=== PATIENT | female | born 1990 | race American Indian/Alaskan Native ===

== ENCOUNTER 2016-08-14 01:46 | Emergency (ER) | payer SELFPAY ==
[2016-08-14 04:47] LABS: Bacteria,Urine 4+ /HPF (Negative); Bilirubin,Urine NEG (Negative); Blood,Urine SM (Negative); Ketones,Urine NEG (Negative); Leukocyte Esterase,Urine SM (Negative); Mucus,Urine 2+ /HPF; Nitrite,Urine NEG (Negative)
--- NOTE | 2016-08-14 06:01 | Emergency Department Report ---
ED Female HPI - General Chief complaint: Back Pain/Injury Stated complaint: BACK PAIN/POSS Time Seen by Provider: 08/14/16 06:00 Source: patient Mode of arrival: Ambulatory Limitations: No Limitations - History of Present Illness Initial comments: 26-year-old -[place] female with no past medical history comes in for complaint of back pain 3 of 4 days. Patient also states to determine if she is . She reports that she is taken 2 tests at home which came back positive. Patient denies any nausea no vomiting no pelvic pain or vaginal discharge no dysuria. She is 2 para 1 she does admit that her urine is dark does not recall if the urine had the smell. - Related Data Previous Rx's Medication Instructions Recorded Last Taken Type Nitrofurantoin [place]/M-Cryst 100 mg PO Q12HR #14 capsule 08/14/16 Unknown Rx [Macrobid CAP] Pnv95/Ferrous Fumarate/FA 1 each PO QDAY #90 tablet 08/14/16 Unknown Rx [ Formula Tablet] Allergies Allergy/AdvReac Type Severity Reaction Status Date / Time No Known Allergies Allergy Verified 03/10/15 22:26 ED Review of Systems ROS: Stated complaint: BACK PAIN/POSS Other details as noted in HPI Constitutional: denies: chills, fever Eyes: denies: eye pain, eye discharge, vision change ENT: denies: ear pain, throat pain Respiratory: denies: cough, shortness of breath, wheezing Cardiovascular: denies: chest pain, palpitations Endocrine: no symptoms reported Gastrointestinal: denies: abdominal pain, nausea, diarrhea Genitourinary: denies: urgency, dysuria, discharge Musculoskeletal: back pain Skin: denies: rash, lesions Neurological: denies: headache, weakness, paresthesias Psychiatric: as per HPI Hematological/Lymphatic: denies: easy bleeding, easy bruising ED Past Medical Hx - Past Medical History Previous Medical History?: No - Surgical History Past Surgical History?: Yes Additional Surgical History: - Social History Smoking Status: Never Smoker Substance Use Type: None - Medications Home Medications: Home Medications Medication Instructions Recorded Confirmed Last Taken Type Nitrofurantoin [place]/M-Cryst 100 mg PO Q12HR #14 capsule 08/14/16 Unknown Rx [Macrobid CAP] Pnv95/Ferrous Fumarate/FA 1 each PO QDAY #90 tablet 08/14/16 Unknown Rx [ Formula Tablet] ED Physical Exam - General Limitations: No Limitations General appearance: alert, in no apparent distress - Head Head exam: Present: atraumatic, normocephalic - Eye Eye exam: Present: normal appearance - ENT ENT exam: Present: mucous membranes moist - GI/Abdominal GI/Abdominal exam: Present: soft, normal bowel sounds. Absent: distended - Back Exam Back exam: Present: tenderness (lower back). Absent: CVA tenderness (R), CVA tenderness (L) - Neurological Exam Neurological exam: Present: alert, oriented X3 - Psychiatric Psychiatric exam: Present: normal affect, normal mood ED Course Vital Signs 08/14/16 08/14/16 08/14/16 02:24 02:32 06:04 Temperature 98.2 F 98.2 F Pulse Rate 81 81 106 H Respiratory 18 18 18 Rate Blood Pressure 125/86 Blood Pressure 125/86 128/82 [Right] O2 Sat by Pulse 100 100 100 Oximetry ED Medical Decision Making - Medical Decision Making Patient has been evaluated by this provider fast track. Review of labs shows the patient is positive for and her urine shows positive WBCs 22. And a trace of blood. Discussed with patient that her results were positive for and that she has a urinary tract infection we would treat patient for UTI and place patient on vitamins. Patient verbalized understanding. Critical care attestation.: If time is entered above; I have spent that time in minutes in the direct care of this critically ill patient, excluding procedure time. ED Disposition Disposition: DISCHARGED TO HOME OR SELFCARE Is pt being admited?: No Does the pt Need Aspirin: No Condition: Stable Instructions: (ED), Urinary Tract Infection in Women (ED) Additional Instructions: Please take antibiotics as prescribed. Also please take vitamins as prescribed follow up with [facility]. Only pain medication needs intake on is Tylenol. Prescriptions: Nitrofurantoin [place]/M-Cryst [Macrobid CAP] 100 mg PO Q12HR #14 capsule Pnv95/Ferrous Fumarate/FA [ Formula Tablet] 1 each PO QDAY #90 tablet Referrals: PRIMARY CARE, [Primary Care Provider] - 3-5 Days [facility] [Provider Group] - 3-5 Days Forms: Work/School Release Form(ED)
[2016-08-14 06:05] VITALS: BP 128/82
== END 2016-08-14 06:15 | disposition home or self-care (01) ==
LOC: ED 01:46
DX: O23.31 Infections of other parts of urinary tract in pregnancy, first trimester (principal); Z3A.01 Less than 8 weeks gestation of pregnancy
CPT/HCPCS: 81001; 81025; 99283

== ENCOUNTER 2016-08-16 21:29 | Emergency (ER) | payer SELFPAY ==
--- NOTE | 2016-08-16 23:47 | Ultrasound Report ---
FINAL REPORT PROCEDURE: US OB TRANSVAGINAL TECHNIQUE: Real-time transvaginal sonography of the uterus, placenta, amniotic fluid, adnexa, and fetus was performed with image documentation. Measurements were obtained to determine age/size. M-mode Doppler was used to document heartbeat. CPT 58684 HISTORY: with pelvic and abdominal pain COMPARISON: There are no older studies to compare FINDINGS: The uterus measures 9.1 X 4.3 x 5.0 Centimeters. There is a small anechoic rounded structure within the endometrium of the uterus. This is nonspecific. It is possible it could be in intrauterine gestational sac although I cannot determine this with certainty. There is no ultrasound evidence of a pole or yolk sac or cardiac activity within this at this time. The uterus appears unremarkable otherwise. Left ovary measures 2.1 x 1.7 x 2.0 centimeters and shows no ultrasound abnormality. The right ovary measures 3.0 x 2.7 x 2.9 centimeters. There is a 2.0 centimeter solid-appearing structure in the right ovary. This could be a cyst with internal debris or hemorrhage. However it is nonspecific and a solid lesion is not excluded. IMPRESSION: 1. At this time there is no ultrasound evidence of a distinct live intrauterine . There is a small round anechoic structure in the endometrium of the uterus which could potentially be a small gestational sac. However it is nonspecific. There is no ultrasound evidence of a pole or yolk sac within this at this time. However it should be noted that it might be too early to definitely detect a viable intrauterine by ultrasound depending on the stage. Therefore short-term follow-up ultrasound exams are recommended to determine if a viable intrauterine develops. If the test remains persistently positive and there is no developing intrauterine on appropriate follow-up then one would also have to consider the possibility of ectopic . 2. There is a 2.0 centimeter solid-appearing lesion in the right ovary. This is nonspecific. It could simply be a cyst with internal debris or hemorrhage. However a small solid lesion in the right ovary is not excluded. 3. The left ovary shows no ultrasound abnormality.
--- NOTE | 2016-08-16 23:51 | Ultrasound Report ---
FINAL REPORT PROCEDURE: US OB \T\lt; = 14 WEEKS FETUS TECHNIQUE: Real-time transabdominal sonography of the uterus, placenta, amniotic fluid, adnexa, and fetus was performed with image documentation. Measurements were obtained to determine age/size. M-mode Doppler was used to document heartbeat. CPT 33830 HISTORY: with pelvic and abdominal pain COMPARISON: No prior studies are available for comparison. FINDINGS: The uterus measures 9.1 X 4.3 x 5.0 centimeters. There is a small anechoic rounded structure within the endometrium of the uterus. This is nonspecific. It is possible it could be in intrauterine gestational sac although I cannot determine this with certainty. There is no ultrasound evidence of a pole or yolk sac or cardiac activity within this at this time. The uterus appears unremarkable otherwise. Left ovary measures 2.1 x 1.7 x 2.0 centimeters and shows no ultrasound abnormality. The right ovary measures 3.0 x 2.7 x 2.9 centimeters. There is a 2.0 centimeter solid-appearing structure in the right ovary. This could be a cyst with internal debris or hemorrhage. However it is nonspecific and a solid lesion is not excluded. IMPRESSION: 1. At this time there is no ultrasound evidence of a distinct live intrauterine . There is a small round anechoic structure in the endometrium of the uterus which could potentially be a small gestational sac. However it is nonspecific. There is no ultrasound evidence of a pole or yolk sac within this at this time. However it should be noted that it might be too early to definitely detect a viable intrauterine by ultrasound depending on the stage. Therefore short-term follow-up ultrasound exams are recommended to determine if a viable intrauterine develops. If the test remains persistently positive and there is no developing intrauterine on appropriate follow-up then one would also have to consider the possibility of ectopic . 2. There is a 2.0 centimeter solid-appearing lesion in the right ovary. This is nonspecific. It could simply be a cyst with internal debris or hemorrhage. However a small solid lesion in the right ovary is not excluded. 3. The left ovary shows no ultrasound abnormality.
[2016-08-17 01:41] VITALS: BP 115/81
== END 2016-08-17 03:17 | disposition left against medical advice (07) ==
LOC: ED 21:29
DX: M54.5 Low back pain (principal); Z53.21 Procedure and treatment not carried out due to patient leaving prior to being seen by health care provider
CPT/HCPCS: 76801; 76817

== ENCOUNTER 2016-08-21 16:19 | Emergency (ER) | payer MEDICAID, OTHER ==
--- NOTE | 2016-08-21 16:57 | Emergency Department Report ---
<OMER VEGA - Last Filed: 08/22/16 13:05> ED Recheck HPI - General Chief Complaint: Recheck/Abnormal Lab/Rx Stated Complaint: RECEIVED CALL TO RETURN TO ER Time Seen by Provider: 08/21/16 16:51 Source: patient Mode of arrival: Ambulatory Limitations: No Limitations - History of Present Illness Initial Comments: 26-year-old -[place] female comes in for reevaluation from visit 2016 where she was diagnosed with and UTI. Patient reports that she has no more back pain and no dysuria she was also told to return for an ultrasound which she did have on the but did not stay for the results in counseling. Patient denies any problems or distress denies any vaginal bleeding denies any vaginal discharge denies any abdominal pain no nausea no vomiting no headache. MD Complaint: abnormal lab, other (abnormal ultrasound from 08/16/2016.) - Related Data Previous Rx's Medication Instructions Recorded Last Taken Type Vit No.130/Iron/FA 1 each PO QDAY #90 tablet 08/21/16 Unknown Rx [ Tablet] Allergies Allergy/AdvReac Type Severity Reaction Status Date / Time No Known Allergies Allergy Verified 08/21/16 16:26 ED Review of Systems ROS: Stated complaint: RECEIVED CALL TO RETURN TO ER Other details as noted in HPI Constitutional: denies: chills, fever Eyes: denies: eye pain, eye discharge, vision change ENT: denies: ear pain, throat pain Respiratory: denies: cough, shortness of breath, wheezing Cardiovascular: denies: chest pain, palpitations Endocrine: no symptoms reported Gastrointestinal: denies: abdominal pain, nausea, diarrhea Genitourinary: denies: urgency, dysuria, discharge Musculoskeletal: denies: back pain, joint swelling, arthralgia Skin: denies: rash, lesions Neurological: denies: headache, weakness, paresthesias Psychiatric: denies: anxiety, depression Hematological/Lymphatic: denies: easy bleeding, easy bruising ED Past Medical Hx - Past Medical History Hx Asthma: Yes - Surgical History Additional Surgical History: - Social History Smoking Status: Never Smoker Substance Use Type: None - Medications Home Medications: Home Medications Medication Instructions Recorded Confirmed Last Taken Type Vit No.130/Iron/FA 1 each PO QDAY #90 tablet 08/21/16 Unknown Rx [ Tablet] ED Physical Exam - General Limitations: No Limitations General appearance: alert, in no apparent distress - Head Head exam: Present: atraumatic, normocephalic - Eye Eye exam: Present: normal appearance - ENT ENT exam: Present: mucous membranes moist - Neck Neck exam: Present: normal inspection - Respiratory Respiratory exam: Present: normal lung sounds bilaterally. Absent: respiratory distress - Cardiovascular Cardiovascular Exam: Present: regular rate, normal rhythm. Absent: systolic murmur, diastolic murmur, rubs, gallop - GI/Abdominal GI/Abdominal exam: Present: soft, normal bowel sounds - Extremities Exam Extremities exam: Present: normal inspection - Back Exam Back exam: Present: normal inspection - Neurological Exam Neurological exam: Present: alert, oriented X3 ED Course Vital Signs 08/21/16 08/21/16 16:22 19:22 Temperature 98.3 F Pulse Rate 86 83 Respiratory 16 18 Rate Blood Pressure 116/71 Blood Pressure 110/69 [Right] O2 Sat by Pulse 100 98 Oximetry ED Recheck MDM - Medical Decision Making Patient is evaluated by this provider in fast track. Patient was a call back from visit 08/14/2016 she did return back on 08/16/2016 but left without being seen. This provider ordered an ultrasound and quantitative hCG. We'll discuss this case with Dr. Ruggiero refer patient to [facility] and be sure that she is on vitamins. Patient verbalized understanding Critical care attestation.: If time is entered above; I have spent that time in minutes in the direct care of this critically ill patient, excluding procedure time. ED Disposition Disposition: DISCHARGED TO HOME OR SELFCARE Is pt being admited?: No Does the pt Need Aspirin: No Condition: Stable Instructions: (ED) Additional Instructions: Please follow-up with your [facility] provider for care. Prescriptions: Vit No.130/Iron/FA [ Tablet] 1 each PO QDAY #90 tablet Referrals: PRIMARY CARE, [Primary Care Provider] - 3-5 Days [facility] [Provider Group] - 3-5 Days Forms: Work/School Release Form(ED) <ALEC RUGGIERO - Last Filed: 08/24/16 15:44> ED Recheck MDM - Medical Decision Making Patient's transvaginal/pelvic ultrasound: Positive IUP with yolk sac measures 6 weeks and 1 day
[2016-08-21 18:30] LABS: Bilirubin,Urine NEG (Negative); Blood,Urine NEG (Negative); Ketones,Urine NEG (Negative); Leukocyte Esterase,Urine SM (Negative); Mucus,Urine 3+ /HPF; Nitrite,Urine NEG (Negative); Protein,Urine <15 mg/dL mg/dL (Negative)
--- NOTE | 2016-08-21 18:31 | Ultrasound Report ---
FINAL REPORT EXAM: US OB TRANSVAGINAL HISTORY: preg TECHNIQUE: Grayscale and color doppler ultrasound imaging of the pelvis was performed transvaginally. PRIORS: None. FINDINGS: Uterus: The uterus is homogeneous in echogenicity without focal mass. The uterus measures 7.8 x 5.2 x 6.7 centimeters. Intrauterine gestational sac and yolk sac were identified. No embryonic pole was seen. Mean sac diameter is 12.7 millimeters corresponding with an estimated gestational age of 6 weeks and 1 day with an CATALINA of 04/15/2017. Ovaries: The right ovary was not seen transvaginally. The left ovary measures 3.7 x 1.7 x 1.9 centimeters. No left ovarian cysts or masses. Free fluid: None. IMPRESSION: Intrauterine gestational sac and yolk sac measuring at 6 weeks and 1 day. Recommend followup pelvic ultrasound to confirm viability of the early .
--- NOTE | 2016-08-21 18:33 | Ultrasound Report ---
FINAL REPORT EXAM: US OB \T\lt; = 14 WEEKS FETUS HISTORY: preg TECHNIQUE: Grayscale and color doppler ultrasound imaging of the pelvis was performed transabdominally. PRIORS: Pelvic ultrasound 08/16/2016. FINDINGS: Uterus: The uterus is homogeneous in echogenicity without focal mass. The uterus measures 7.8 x 5.2 x 6.7 centimeters. Intrauterine gestational sac and yolk sac were seen. No embryonic pole was seen at this time. Mean sac diameter is 12.7 millimeters corresponding with an estimated gestational age of 6 weeks and 1 day with an CATALINA of 04/15/2017. Ovaries: Again seen is heterogeneous, hypoechoic lesion within the right ovary measuring 1.9 x 1.3 x 1.3 centimeters, unchanged. No left ovarian lesions. Normal flow is seen to the right ovary. Color Doppler interrogation of the left ovary was not performed. The right ovary measures 4.2 x 1.9 x 3.8 centimeters. The left ovary measures 3.7 x 1.7 x 1.9 centimeters. Free fluid: None. IMPRESSION: 1. Intrauterine gestational sac and yolk sac measuring at 6 weeks and 1 day gestational age with an CATALINA of 04/15/2017. No embryonic pole identified at this time. Recommend followup pelvic ultrasound to confirm viability of early . 2. Again seen is a heterogeneous right ovarian lesion which may represent a hemorrhagic cyst versus solid neoplasm. Attention on subsequent exams is recommended.
[2016-08-21 19:23] VITALS: BP 110/69
== END 2016-08-21 19:22 | disposition home or self-care (01) ==
LOC: ED 16:19
DX: O23.41 Unspecified infection of urinary tract in pregnancy, first trimester (principal); J45.909 Unspecified asthma, uncomplicated; Z3A.01 Less than 8 weeks gestation of pregnancy
CPT/HCPCS: 36415; 76801; 76817; 81001; 84702

== ENCOUNTER 2016-08-25 23:58 | Emergency (ER) | payer MEDICAID ==
[2016-08-26 00:42] LABS: Basophils % (Auto) 0.2 % (0.0-1.8); Eosinophils % (Auto) 0.9 % (0.0-4.3); Hematocrit 38.5 % (30.3-42.9); Hemoglobin 12.7 gm/dl (10.1-14.3); Mean Corpuscular HGB Conc 33 % (30-34); Mean Corpuscular Hemoglobin 29 pg (28-32); Mean Corpuscular Volume 89 fl (79-97); Platelet Count 317 K/mm3 (140-440); Red Blood Count 4.33 M/mm3 (3.65-5.03); Red Cell Distribution Width 14.2 % (13.2-15.2); White Blood Count 12.1 K/mm3 (4.5-11.0)
[2016-08-26 01:01] LABS: Alanine Aminotransferase 11 units/L (7-56); Albumin 4.3 g/dL (3.9-5); Albumin/Globulin Ratio 1.1 %; Alkaline Phosphatase 47 units/L (35-129); Anion Gap 19 mmol/L; Blood Urea Nitrogen 9 mg/dL (7-17); Calcium 9.1 mg/dL (8.4-10.2); Carbon Dioxide 21 mmol/L (22-30); Chloride 97.7 mmol/L (98-107); Glucose 73 mg/dL (65-100); Lipase 17 units/L (13-60); Potassium 3.7 mmol/L (3.6-5.0); Sodium 134 mmol/L (137-145); Total Protein 8.3 g/dL (6.3-8.2)
[2016-08-26 03:35] LABS: Bacteria,Urine 4+ /HPF (Negative); Bilirubin,Urine NEG (Negative); Blood,Urine MOD (Negative); Ketones,Urine 80 mg/dL (Negative); Leukocyte Esterase,Urine MOD (Negative); Mucus,Urine 3+ /HPF; Nitrite,Urine POS (Negative); Urobilinogen,Urine < 2.0 mg/dL (<2.0)
--- NOTE | 2016-08-26 06:46 | Emergency Department Report ---
HPI - General Chief Complaint: Abdominal Pain Time Seen by Provider: 08/26/16 06:37 - HPI HPI: Room 16 The patient is a 26-year-old female presenting with a chief complaint of abdominal pain. The patient states for the past 3 days she's had intermittent left lower quadrant abdominal pain. The patient states after urinating she notices blood on the tissue after she wipes. Patient denies dysuria or fever. The patient states she has not seen an [facility] for this yet Location: [see above] Duration: [see above] Quality: Pain Severity: Moderate Modifying factors: [see above] Context: The patient is 6 weeks Mode of transportation: [not driving] ED Past Medical Hx - Past Medical History Previous Medical History?: Yes Hx Asthma: Yes - Surgical History Past Surgical History?: Yes Additional Surgical History: - Family History Family history: no significant - Social History Smoking Status: Never Smoker Substance Use Type: None - Medications Home Medications: Home Medications Medication Instructions Recorded Confirmed Last Taken Type Vit No.130/Iron/FA 1 each PO QDAY #90 tablet 08/21/16 08/26/16 Rx [ Tablet] Nitrofurantoin Bradley/M-Cryst 100 mg PO Q12HR #14 capsule 08/26/16 Unknown Rx [Macrobid CAP] ED Review of Systems ROS: Stated complaint: LOWER ABD PAIN/BLOOD IN URINE Other details as noted in HPI Comment: All other systems reviewed and negative Constitutional: denies: chills, fever Eyes: denies: eye pain, eye discharge, vision change ENT: denies: ear pain, throat pain Respiratory: denies: cough, shortness of breath, wheezing Cardiovascular: denies: chest pain, palpitations Endocrine: no symptoms reported Gastrointestinal: abdominal pain Genitourinary: hematuria, abnormal menses. denies: dysuria Musculoskeletal: denies: back pain, joint swelling, arthralgia Skin: denies: rash, lesions Neurological: denies: headache, weakness, paresthesias Psychiatric: denies: anxiety, depression Hematological/Lymphatic: denies: easy bleeding, easy bruising Physical Exam - Physical Exam Vital Signs: Vital Signs 08/26/16 08/26/16 08/26/16 00:14 03:37 03:38 Temperature 98.8 F 98.9 F Pulse Rate 69 62 Respiratory 18 20 20 Rate Blood Pressure 114/77 Blood Pressure 108/65 [Left] O2 Sat by Pulse 100 100 100 Oximetry Physical Exam: GENERAL: The patient is well-developed well-nourished female lying on stretcher not appearing to be in acute distress. [] HEENT: Normocephalic. Atraumatic. Extraocular motions are intact. Patient has moist mucous membranes. NECK: Supple. Trachea midline CHEST/LUNGS: Clear to auscultation. There is no respiratory distress noted. HEART/CARDIOVASCULAR: Regular. There is no tachycardia. There is no gallop rub or murmur. ABDOMEN: Abdomen is soft, nontender. Patient has normal bowel sounds. There is no abdominal distention. SKIN: There is no rash. There is no edema. There is no diaphoresis. NEURO: The patient is awake, alert, and oriented. The patient is cooperative. The patient has normal speech MUSCULOSKELETAL: There is no evidence of acute injury. ED Course Vital Signs 08/26/16 08/26/16 08/26/16 00:14 03:37 03:38 Temperature 98.8 F 98.9 F Pulse Rate 69 62 Respiratory 18 20 20 Rate Blood Pressure 114/77 Blood Pressure 108/65 [Left] O2 Sat by Pulse 100 100 100 Oximetry ED Medical Decision Making - Lab Data Result diagrams: 08/26/16 00:25 08/26/16 00:25 Laboratory Tests 08/26/16 08/26/16 08/26/16 00:25 00:25 00:25 WBC 12.1 H RBC 4.33 Hgb 12.7 Hct 38.5 MCV 89 MCH 29 MCHC 33 RDW 14.2 Plt Count 317 Lymph % (Auto) 17.0 Bradley % (Auto) 5.6 Eos % (Auto) 0.9 Baso % (Auto) 0.2 Lymph # 2.1 Bradley # 0.7 Eos # 0.1 Baso # 0.0 Seg Neutrophils % 76.3 H Seg Neutrophils # 9.3 H Sodium 134 L Potassium 3.7 Chloride 97.7 L Carbon Dioxide 21 L Anion Gap 19 BUN 9 Creatinine 0.5 L Estimated GFR > 60 BUN/Creatinine Ratio 18.00 Glucose 73 Calcium 9.1 Total Bilirubin 0.50 AST 16 ALT 11 Alkaline Phosphatase 47 Total Protein 8.3 H Albumin 4.3 Albumin/Globulin Ratio 1.1 Lipase 17 HCG, Qual Positive HCG, Quant Urine Color Urine Turbidity Urine pH Ur Specific [place] Urine Protein Urine Glucose (UA) Urine Ketones Urine Blood Urine Nitrite Urine Bilirubin Urine Urobilinogen Ur Leukocyte Esterase Urine WBC (Auto) Urine RBC (Auto) U Epithel Cells (Auto) Urine Bacteria (Auto) Urine Mucus 08/26/16 08/26/16 00:25 02:46 WBC RBC Hgb Hct MCV MCH MCHC RDW Plt Count Lymph % (Auto) Bradley % (Auto) Eos % (Auto) Baso % (Auto) Lymph # Bradley # Eos # Baso # Seg Neutrophils % Seg Neutrophils # Sodium Potassium Chloride Carbon Dioxide Anion Gap BUN Creatinine Estimated GFR BUN/Creatinine Ratio Glucose Calcium Total Bilirubin AST ALT Alkaline Phosphatase Total Protein Albumin Albumin/Globulin Ratio Lipase HCG, Qual HCG, Quant 90122 H Urine Color Yellow Urine Turbidity Clear Urine pH 6.0 Ur Specific [place] 1.027 Urine Protein 30 mg/dl Urine Glucose (UA) Neg Urine Ketones 80 Urine Blood Mod Urine Nitrite Pos Urine Bilirubin Neg Urine Urobilinogen < 2.0 Ur Leukocyte Esterase Mod Urine WBC (Auto) 13.0 H Urine RBC (Auto) 7.0 U Epithel Cells (Auto) 8.0 Urine Bacteria (Auto) 4+ Urine Mucus 3+ - Radiology Data Radiology results: report reviewed (pelvic ultrasound), image reviewed (pelvic ultrasound) Pelvic ultrasound (read by radiologist)-single living gestation at approximate 6 weeks. EDC by ultrasound 04/18/2017. Heart rate is slow at 91 bpm. 10 x 8 mm subchorionic hematoma. - Differential Diagnosis UTI, threatened Critical care attestation.: If time is entered above; I have spent that time in minutes in the direct care of this critically ill patient, excluding procedure time. ED Disposition Clinical Impression: UTI (urinary tract infection), Threatened , Subchorionic hemorrhage Disposition: DISCHARGED TO HOME OR SELFCARE Is pt being admited?: No Does the pt Need Aspirin: No Condition: Stable Instructions: Abdominal Pain (ED) Additional Instructions: Return to the emergency department immediately should you develop worsening symptoms, fever, inability to tolerate food or liquid or any other concerns. Prescriptions: Nitrofurantoin [place]/M-Cryst [Macrobid CAP] 100 mg PO Q12HR #14 capsule Referrals: PRIMARY CARE, [Primary Care Provider] - 3-5 Days [facility]Provider [facility]] - [place] Time of Disposition: 08:20
[2016-08-26 07:38] VITALS: BP 100/60
--- NOTE | 2016-08-26 08:01 | Ultrasound Report ---
FINAL REPORT PROCEDURE: US OB TRANSVAGINAL TECHNIQUE: Real-time transvaginal sonography of the uterus, placenta, amniotic fluid, adnexa, and fetus was performed with image documentation. Measurements were obtained to determine age/size. M-mode Doppler was used to document heartbeat. CPT 29464 HISTORY: lower abdominal pain, vaginal bleeding COMPARISON: August 21, 2016 FINDINGS: CRL: 3.9mm, which corresponds to a gestational age of: 6weeks, 0 days. Yolk Sac: Normal. Embryonic Cardiac Activity: 91 beats per minute Gestational Sac: Normal. There is a small subchorionic hematoma. This measures 10 x 8 millimeters. Right Ovary: There is a 2.8 centimeter complex cyst. Left Ovary: Normal. Estimated delivery date: 04/18/2017 Comment: Complete anatomic survey at 18-20 weeks suggested. IMPRESSION: 1. Single living intrauterine gestation at approximately 6 weeks 2. EDC by US 04/18/2017. 3. Heart rate is slow at 91 beats per minute.. 4. 10 x 8 millimeter subchorionic hematoma.
--- NOTE | 2016-08-26 08:02 | Ultrasound Report ---
FINAL REPORT PROCEDURE: US OB TRANSABDOMINAL TECHNIQUE: Real-time TRANSABDOMINAL sonography of the uterus, placenta, amniotic fluid, adnexa, and fetus was performed with image documentation. Measurements were obtained to determine age/size. M-mode Doppler was used to document heartbeat. HISTORY: lower abdominal pain, vaginal bleeding COMPARISON: August 21, 2016 FINDINGS: CRL: 3.9mm, which corresponds to a gestational age of: 6weeks, 0 days. Yolk Sac: Normal. Embryonic Cardiac Activity: 91 beats per minute Gestational Sac: Normal. There is a small subchorionic hematoma. This measures 10 x 8 millimeters. Right Ovary: There is a 2.8 centimeter complex cyst. Left Ovary: Normal. Estimated delivery date: 04/18/2017 Comment: Complete anatomic survey at 18-20 weeks suggested. IMPRESSION: 1. Single living intrauterine gestation at approximately 6 weeks 2. EDC by US 04/18/2017. 3. Heart rate is slow at 91 beats per minute.. 4. 10 x 8 millimeter subchorionic hematoma.
== END 2016-08-26 08:28 | disposition home or self-care (01) ==
LOC: ED 23:58
DX: O20.0 Threatened abortion (principal); O23.41 Unspecified infection of urinary tract in pregnancy, first trimester; O99.511 Diseases of the respiratory system complicating pregnancy, first trimester; Z3A.01 Less than 8 weeks gestation of pregnancy
CPT/HCPCS: 36415; 76801; 76817; 80053; 81001; 83690; 84702; 84703; 85025

== ENCOUNTER 2016-10-31 23:13 | Emergency (ER) | payer MEDICAID ==
[2016-10-31 23:34] VITALS: BP 110/74
[2016-11-01 00:13] LABS: Basophils % (Auto) 0.3 % (0.0-1.8); Eosinophils % (Auto) 1.3 % (0.0-4.3); Hematocrit 33.1 % (30.3-42.9); Hemoglobin 10.9 gm/dl (10.1-14.3); Mean Corpuscular HGB Conc 33 % (30-34); Mean Corpuscular Hemoglobin 30 pg (28-32); Mean Corpuscular Volume 89 fl (79-97); Platelet Count 272 K/mm3 (140-440); Red Blood Count 3.71 M/mm3 (3.65-5.03); Red Cell Distribution Width 14.1 % (13.2-15.2); White Blood Count 9.8 K/mm3 (4.5-11.0)
[2016-11-01 00:36] LABS: Alanine Aminotransferase 19 units/L (7-56); Albumin 3.7 g/dL (3.9-5); Albumin/Globulin Ratio 0.9 %; Alkaline Phosphatase 45 units/L (35-129); Anion Gap 18 mmol/L; Blood Urea Nitrogen 8 mg/dL (7-17); Calcium 9.3 mg/dL (8.4-10.2); Carbon Dioxide 22 mmol/L (22-30); Chloride 99.7 mmol/L (98-107); Glucose 80 mg/dL (65-100); Lipase 26 units/L (13-60); Potassium 3.4 mmol/L (3.6-5.0); Sodium 136 mmol/L (137-145); Total Protein 7.9 g/dL (6.3-8.2)
--- NOTE | 2016-11-01 02:34 | Ultrasound Report ---
FINAL REPORT EXAM: US OB \T\gt; = 14 WEEKS FETUS HISTORY: Abd pain COMPARISON: August 26, 2016. TECHNIQUE: Several real-time grayscale and color Doppler images were obtained. Transabdominal and transvaginal exam. FINDINGS: Single live IUP. Estimated gestational age 16 weeks 2 days. Estimated delivery date April 16, 2017. heart rate 153 beats per minute. Estimated weight 162 grams. On prior exam, estimated delivery date April 18, 2017. BPD 13.1 centimeters 15 weeks 5 days. Head circumference 12.0 centimeter 16 weeks 0 days. Abdominal circumference 10.9 centimeter 16 weeks 5 days. Femoral length 2.2 centimeter 16 weeks 5 days. position breech. Placenta location anterior. No placenta previa. CHRIS within normal limits. Cervix is closed and measures 2.2 centimeters in length. Visualized heart, stomach, urinary bladder, cerebral ventricles are within normal limits. Three-vessel umbilical cord with abdominal insertion. 4 chambers of the heart and spine are not well visualized. Technologist notes mild dilatation of the renal pelves measuring 3 millimeters in diameter. Possible echogenic focus within the heart. IMPRESSION: Single live IUP. Estimated gestational age 16 weeks 2 days. Estimated delivery date April 16, 2017. Borderline dilatation of the renal pelves. Possible echogenic focus within the heart. Followup exam with perinatologist may be of benefit for further evaluation. No other or placental abnormality demonstrated.
--- NOTE | 2016-11-01 18:16 | ED Elopement Review ---
ED Pt Elopement review - Results review Lab results: Laboratory Tests 10/31/16 10/31/16 10/31/16 23:41 23:41 23:41 WBC 9.8 RBC 3.71 Hgb 10.9 Hct 33.1 MCV 89 MCH 30 MCHC 33 RDW 14.1 Plt Count 272 Lymph % (Auto) 17.6 Pope % (Auto) 8.4 H Eos % (Auto) 1.3 Baso % (Auto) 0.3 Lymph # 1.7 Pope # 0.8 Eos # 0.1 Baso # 0.0 Seg Neutrophils % 72.4 H Seg Neutrophils # 7.1 Sodium 136 L Potassium 3.4 L Chloride 99.7 Carbon Dioxide 22 Anion Gap 18 BUN 8 Creatinine 0.4 L Estimated GFR > 60 BUN/Creatinine Ratio 20.00 Glucose 80 Calcium 9.3 Total Bilirubin 0.30 AST 24 ALT 19 Alkaline Phosphatase 45 Total Protein 7.9 Albumin 3.7 L Albumin/Globulin Ratio 0.9 Lipase 26 HCG, Qual Positive HCG, Quant 10/31/16 23:41 WBC RBC Hgb Hct MCV MCH MCHC RDW Plt Count Lymph % (Auto) Pope % (Auto) Eos % (Auto) Baso % (Auto) Lymph # Pope # Eos # Baso # Seg Neutrophils % Seg Neutrophils # Sodium Potassium Chloride Carbon Dioxide Anion Gap BUN Creatinine Estimated GFR BUN/Creatinine Ratio Glucose Calcium Total Bilirubin AST ALT Alkaline Phosphatase Total Protein Albumin Albumin/Globulin Ratio Lipase HCG, Qual HCG, Quant 48664 H - Call Back decision Pt Call Back Decision: Pt to F/U with PMD (patient needs to follow-up with OB/ HEAVY MEDIA OPERATOR as OB ultrasound shows possible abnormalities of echogenic focus in the heart and dilation of renal pelvis)
== END 2016-11-01 01:55 | disposition left against medical advice (07) ==
LOC: ED 23:13
DX: O26.892 Other specified pregnancy related conditions, second trimester (principal); R10.9 Unspecified abdominal pain; Z3A.16 16 weeks gestation of pregnancy; Z53.21 Procedure and treatment not carried out due to patient leaving prior to being seen by health care provider
CPT/HCPCS: 36415; 76805; 76817; 80053; 83690; 84702; 84703; 85025

== ENCOUNTER 2017-03-07 19:23 | Outpatient (CLI) | payer MEDICAID ==
[2017-03-07 19:55] VITALS: BP 117/72
[2017-03-07] MEDS ORDERED: LACTATED RINGERS 500 ML IV ONE (22:11)
== END 2017-03-07 22:20 | disposition home or self-care (01) ==
LOC: TRG 19:23 → LD 19:32 → TRG 22:20
PROVIDERS: ATTEND Obstetrics & Gynecology
DX: O47.03 False labor before 37 completed weeks of gestation, third trimester (principal); Z3A.34 34 weeks gestation of pregnancy
CPT/HCPCS: 59025; J7120

== ENCOUNTER 2017-04-10 08:57 | Inpatient (IN) | payer MEDICAID ==
[2017-04-10] MEDS ORDERED: REGLAN IV SCH (09:40)
[2017-04-10] MEDS ORDERED: PEPCID IV SCH (09:40)
[2017-04-10] MEDS ORDERED: BICITRA PO SCH (09:40)
--- NOTE | 2017-04-10 09:47 | History and Physical Report ---
History of Present Illness Date of examination: 04/10/17 (pt presents in early labor will move forward with repeat c/s today) History of present illness: EDC Confirmation: 04/16/2017 Gestational Age: 8 weeks Past History : 2 Term Births: 1 Living Children: 1 Para: 1 Prev : 1 # 1 Delivery date: 2013 Weeks Gestation: term Delivery type: Anesthesia type: epidural Delivery location: [place] Infant Sex: Male weight: 7 Comments: failure to dilate Risk Factors: Smoked Tobacco Use: Never smoker Smokeless Tobacco Use: Never Passive smoke exposure: no Drug use: no HIV high-risk behavior: low risk Caffeine use: 1 drinks per day Alcohol use: no Seatbelt use: 100 % Dietary Counseling: pn yes Past Medical History: Reviewed history and no changes required: Negative Past Medical History Past Surgical History: Past Medical History Surgery (Non-equine vet): Abnormal PAP: negative EZE Exposure: negative Infertility: negative Uterine Anomaly: negative Uterine Surgery (not C/S): negative Other Gynecologic Problems: negative Social Hx: Patient is single Smoking History: Patient has never smoked. Infection History Hx of STD: chlamydia HIV Risk Eval: low risk Hepatitis B Risk Eval: low risk Personal hx. of genital herpes: no Partner hx. of genital herpes: no Rash, Viral, or Febrile illness since last LMP? no Varicella/Chicken Pox Status: Previous Disease TB Risk: no Genetic History Congenital Heart Defect: Mom: no Dad: no Smooth Disease: Mom: no Dad: no Thalassemia Mom: no Dad: no Neural Tube Defect Mom: no Dad: no Down's Syndrome Mom: no Dad: no Ghassan-Sachs Mom: no Dad: no Sickle Cell Disease/Trait Mom: no Dad: no Hemophilia Mom: no Dad: no Muscular Dystrophy Mom: no Dad: no Cystic Fibrosis Mom: no Dad: no [place] Chorea Mom: no Dad: no Mental Retardation Mom: no Dad: no Fragile X Mom: no Dad: no Other Genetic/Chromosomal Disorder Mom: no Dad: no Child w/other defect Mom: no Dad: no Enviromental Exposures Xray Exposure: no Medication, drug, or alcohol use since LMP: no Chemical/Other Exposure: no Exposure to Cat Liter: no Hx of Parvovirus (Fifth Disease): no Occupational Exposure to Children: none Active Medications: ZOFRAN ODT 8 MG TBDP (ONDANSETRON) 1 po q12hrs prn Current Allergies: No known allergies Laboratory Results Date/Time Collected: 09/04/2016 Routine Urinalysis Leukocytes: 2+ Nitrite: negative Urobilinogen: negative Protein: Trace Blood: 1+ Ketone: negative Bilirubin: negative Glucose: Negative Urine HCG: positive Review of Systems General Denies fever, chills, sweats, anorexia, fatigue, weakness, malaise, weight loss and sleep disorder. Denies nausea, vomiting, headache, swelling of legs, abdominal pain, vaginal discharge, vaginal bleeding and contractions. Denies vaginal discharge, incontinence, dysuria, hematuria, urinary frequency, amenorrhea, menorrhagia, abnormal vaginal bleeding, pelvic pain, genital sores, decreased libido, painful periods, painful sex, urinary urgency, hot flashes, vaginal dryness, vaginal itching and vaginal odor. CV Denies chest pains, palpitations, syncope, dyspnea on exertion, orthopnea, PND and peripheral edema. Resp Denies cough, dyspnea at rest, excessive sputum, hemoptysis, wheezing and pleurisy. GI Denies nausea, vomiting, diarrhea, constipation, change in bowel habits, abdominal pain, melena, hematochezia, jaundice, gas/bloating, indigestion/ heartburn, dysphagia and odynophagia. Endo Denies cold intolerance, heat intolerance, polydipsia, polyphagia, polyuria and unusual weight change. Breast Denies left breast lump, right breast lump, nipple discharge, bloody discharge from nipple, breast pain, abnormal mammogram and breast enlargement. MS Denies back pain, joint pain, joint swelling, muscle cramps, muscle weakness, stiffness, arthritis, sciatica, restless legs, leg pain at night and leg pain with exertion. Derm Denies rash, itching, dryness and suspicious lesions. Neuro Denies paralysis, paresthesias, headache, seizures, tremors, vertigo, transient blindness, frequent falls, frequent headaches and difficulty walking. Psych Denies depression, anxiety, irritability and mood swings. Eyes Denies blurring, diplopia, irritation, discharge, vision loss, eye pain and photophobia. ENT Denies earache, ear discharge, tinnitus, decreased hearing, nasal congestion, nosebleeds, sore throat and hoarseness. Allergy Denies urticaria, allergic rash, hay fever and recurrent infections. Heme Denies abnormal bruising, bleeding and enlarged lymph nodes. Family History Summary: No Known Family History - Entered On: 09/04/2016 Social History: Patient is single Smoking History: Patient has never smoked. PHYSICAL EXAM HEENT: PERRLA, normal conjunctiva, external nose and nasal mucosa normal, oropharynx clear Neck/Thyroid: supple, thyroid normal Skin no significant abnormal lesions or rashes Chest: respiratory effort normal, clear to auscultation Breasts: normal without skin changes or masses CV: regular, normal S1-S2, no murmur, no rub, no gallop Abdomen: normal bowel sounds, soft, nontender, no HSM Musculoskeletal: grossly normal ROM in joints, no joint tenderness or muscle weakness Neuro: grossly normal DTRs, sensation, strength, cranial nerves Extremities: no clubbing, cyanosis, or edema Past History - Obstetrical History Expected Date of Delivery: 04/16/17 Actual Gestation: 39 Week(s) 1 Day(s) : 2 Para: 1 (c/s due to failure to dilate) Hx # Term Pregnancies: 1 Number of Living Children: 1 Medications and Allergies Allergies Allergy/AdvReac Type Severity Reaction Status Date / Time No Known Allergies Allergy Verified 08/21/16 16:26 Home Medications Medication Instructions Recorded Confirmed Last Taken Type Vit No.130/Iron/Folic 1 each PO QDAY #90 tablet 08/21/16 08/26/1608/26 Rx [ Tablet] Nitrofurantoin [place]/M-Cryst 100 mg PO Q12HR #14 capsule 08/26/16 Unknown Rx [Macrobid CAP] Active Meds: Active Medications Lactated Ringer's (Lactated Ringers) 1,000 mls @ 125 mls/hr IV DIRECT CRISSY - Vital Signs Vital signs: Vital Signs Temp Pulse Resp BP 98.5 F 65 18 114/74 04/10/17 08:59 04/10/17 08:59 04/10/17 08:59 04/10/17 08:59 Temp Pulse Resp BP Pulse Ox 98.5 F 65 18 114/74 04/10/17 08:59 04/10/17 08:59 04/10/17 08:59 04/10/17 08:59 - Physical Exam Breasts: Positive: deferred Cardiovascular: Regular rate, Normal S1, Normal S2 Lungs: Positive: Normal air movement Abdomen: Positive: normal appearance, soft, normal bowel sounds. Negative: distention, tenderness Genitourinary (Female): Positive: normal external genitalia Vulva: both: normal Vagina: Positive: normal moisture. Negative: discharge Cervix: Negative: lesion, discharge Uterus: Positive: normal size, normal contour Adnexa: both: normal Anus/Rectum: Positive: normal perianal skin, heme negative. Negative: rectal mass, hemorrhoids Extremities: Positive: normal Deep Tendon Reflex Grade: Normal +2 - Obstetrical FHR: category 1 Uterine Contraction Monitor Mode: External Cervical Dilatation: 0 Cervical Effacement Percentage: 50 station: -1 Uterine Contraction Frequency (min): q4 Uterine Contraction Pattern: Regular Uterine Tone Measurement Phase: Resting Uterine Contraction Intensity: Mild Results Result Diagrams: 04/10/17 09:55 All other labs normal. Strep Gp B PENNY [A] Positive HBsAg Screen Negative Negative *1 Rubella Antibodies, IgG 7.53 index Immune >0.99 *2 Non-immune <0.90 Equivocal 0.90 - 0.99 Immune >0.99 ABO Grouping A *3 Rh Factor Positive *4 Please note: Prior records for this patient's ABO / Rh type are not available for additional verification. Antibody Screen Negative Negative *5 RPR Non Reactive Non Reactive *6 WBC 9.6 x10E3/uL 3.4-10.8 *7 RBC 3.92 x10E6/uL 3.77-5.28 *8 Hemoglobin 11.3 g/dL 11.1-15.9 *9 Hematocrit 34.6 % 34.0-46.6 *10 MCV 88 fL 79-97 *11 MCH 28.8 pg 26.6-33.0 *12 MCHC 32.7 g/dL 31.5-35.7 *13 RDW 14.3 % 12.3-15.4 *14 Platelets 256 x10E3/uL 150-379 *15 Neutrophils 77 % *16 Lymphs 13 % *17 Monocytes 8 % *18 Eos 2 % *19 Basos 0 % *20 ! Immature Cells <No Reported Value> *21 Neutrophils (Absolute) [H] 7.4 x10E3/uL 1.4-7.0 *22 Lymphs (Absolute) 1.3 x10E3/uL 0.7-3.1 *23 Monocytes(Absolute) 0.7 x10E3/uL 0.1-0.9 *24 Eos (Absolute) 0.2 x10E3/uL 0.0-0.4 *25 Baso (Absolute) 0.0 x10E3/uL 0.0-0.2 *26 ! Immature Granulocytes 0 % *27 ! Immature Grans (Abs) 0.0 x10E3/uL 0.0-0.1 *28 ! NRBC <No Reported Value> *29 Hematology Comments: <No Reported Value> *30 Tests: (2) Cystic Fibrosis Profile (089089) ! CF, Screen Comment: *31 RESULTS: Negative for 32 mutations analyzed Tests: (3) HB Solu + Rflx Fra (081100) Hemoglobin (Hgb) Solubility Negative Negative *33 Tests: (4) Panel 011225 ([id number]) HIV Screen 4th Generation wRfx Non Reactive Non Reactive *34 Tests: (5) HCV Ab w/Rflx to Verification (198014) ! HCV Ab <0.1 s/co ratio 0.0-0.9 *35 Tests: (6) Comment: (199068) ! Comment: SPRCS *36 Non reactive HCV antibody screen is consistent with no HCV infection, unless recent infection is suspected or other evidence exists to indicate HCV infection. Assessment and Plan 26yo @ 39 weeks in early active labor Consulted with Will move forward with pt's repeat c/s today. GBS+ Orders in EMR - Patient Problems (1) Group B Streptococcus carrier state affecting Onset Date: ~04/10/17 Current Visit: Yes Status: Acute (2) Previous section Onset Date: ~04/10/17 Current Visit: Yes Status: Acute
[2017-04-10] MEDS ORDERED: PITOCin/NS 20 UNIT/1000ML DRIP 20 UNITS/1,000 ML BAG IV SCH ×2 (10:00→22:09)
[2017-04-10] MEDS ORDERED: LACTATED RINGERS 1,000 ML IV SCH ×2 (10:00)
[2017-04-10] MEDS ORDERED: ANCEF/STERILE WATER 2 GM/20 ML 2 GM/20 ML SYRINGE IV NR (10:00)
[2017-04-10 10:20] LABS: Bacteria,Urine 4+ /HPF (Negative); Mucus,Urine 1+ /HPF
[2017-04-10 10:22] LABS: Basophils % (Auto) 0.3 % (0.0-1.8); Eosinophils % (Auto) 0.5 % (0.0-4.3); Hematocrit 27.3 % (30.3-42.9); Hemoglobin 8.5 gm/dl (10.1-14.3); Mean Corpuscular HGB Conc 31 % (30-34); Mean Corpuscular Volume 72 fl (79-97); Platelet Count 357 K/mm3 (140-440); Red Cell Distribution Width 17.3 % (13.2-15.2); White Blood Count 10.2 K/mm3 (4.5-11.0)
[2017-04-10 10:23] LABS: Mean Corpuscular Hemoglobin 23 pg (28-32); WBC,Urine > 182.0 /HPF (0.0-6.0)
[2017-04-10 10:26] LABS: Bilirubin,Urine NEG (Negative); Blood,Urine NEG (Negative); Ketones,Urine NEG (Negative); Leukocyte Esterase,Urine LG (Negative); Nitrite,Urine NEG (Negative); Protein,Urine <15 mg/dL mg/dL (Negative)
--- NOTE | 2017-04-10 17:07 | Anesthesia Day of Surgery ---
Anesthesia Day of Surgery - Day of Surgery Patient Examined: Yes Patient H&P Reviewed: Yes Patient is NPO: Yes
[2017-04-10] MEDS ORDERED: ZOFRAN IV PRN (17:08)
[2017-04-10] MEDS ORDERED: PHENERGAN PO PRN (17:08)
[2017-04-10] MEDS ORDERED: BENADRYL IV PRN (17:08)
[2017-04-10] MEDS ORDERED: NARCAN 0.4 MG/1 ML IV PRN ×2 (17:08→22:09)
[2017-04-10] MEDS ORDERED: PHENERGAN PR PRN (17:08)
--- NOTE | 2017-04-10 17:08 | Anesthesia Consultation ---
Anesthesia Consult and Med Hx Date of service: 04/10/17 - Airway Anesthetic Teeth Evaluation: Good ROM Head & Neck: Adequate Mental/Hyoid Distance: Adequate Mallampati Class: Class II Intubation Access Assessment: Probably Good - Pre-Operative Health Status ASA Pre-Surgery Classification: ASA2 Proposed Anesthetic Plan: Epidural, Spinal - Pulmonary Hx Asthma: Yes COPD: No Hx Pneumonia: No - Cardiovascular System Hx Hypertension: No - Central Nervous System Hx Seizures: No Hx Psychiatric Problems: No - Endocrine Hx Renal Disease: No Hx End Stage Renal Disease: No Hx Hypothyroidism: No Hx Hyperthyroidism: No - Hematic Hx Anemia: No Hx Sickle Cell Disease: No - Other Systems Hx Alcohol Use: No
[2017-04-10] MEDS ORDERED: TORADOL IV PRN (17:09)
[2017-04-10] MEDS ORDERED: MORPHINE ONE (17:28)
[2017-04-10] MEDS ORDERED: NEO SYNEPHRINE/NS Syringe(OR USE) IV ONE ×2 (17:48→18:21)
[2017-04-10] MEDS ORDERED: SODIUM CHLORIDE FLUSH SYRINGE 10 ML IV NR ×2 (18:00→22:09)
[2017-04-10] MEDS ORDERED: ANCEF ONE (18:00)
[2017-04-10] MEDS ORDERED: TORADOL ONE (18:03)
[2017-04-10] MEDS ORDERED: ZOFRAN ONE (18:32)
--- NOTE | 2017-04-10 18:41 | Operative Report ---
Operative Report Operative Report: Date of procedure: 04/10/2017 Pre-operative diagnosis: Uterine at 39 weeks with previous section in labor Post-operative diagnosis: Same Procedure name(s): Repeat low transverse section Surgeon: Kike Mead MD Predatory Animal Exterminator: LENNIE Anesthesia: Spinal EBL: 500 mL Complications: None Findings: Normal uterus tubes and ovaries bilaterally male weight 7 lbs. 7 oz. Apgars 8 at 1 minute and 9 at 5 minutes Specimen(s): None Procedure: The patient was brought to the operating room. A spinal was placed without any complications. She was then placed in left lateral tilt. Prepped and draped in the usual sterile manner. After testing for adequate anesthesia level, a Pfannenstiel incision was made through her previous scar. This incision was taken down to the fascia. The fascia was then nicked in the midline. This incision was extended out laterally with Seals scissors. The fascia was then sharply and bluntly from the underlying rectus muscles. The rectus muscles were bluntly and sharply . The peritoneum was then entered with the hardening machine operator's fingers. This incision was spread vertically with care not to damage the bladder below. The bladder flap was then formed sharply and bluntly with Metzenbaum scissors. The David self- retaining tractor was then placed without any difficulty. A transverse incision was made in lower uterine segment. This incision was extended laterally with the operators fingers. The amniotic sac was then entered bluntly with the hardening machine operator's fingers. The infant was delivered from the vertex position with assistance of a vacuum. Bulb suction on the mother's abdomen. Cord was double clamped and cut. The was then passed to the nursery personnel who were in attendance. The above scores were given by the nursery personnel. The placenta was then bluntly removed. The uterus was then externalized and wiped clean the remaining products. The uterine incision was closed in layers. The first incision was closed in a locking manner using 0 Vicryl. This was followed by imbricating stitch also with 0 Vicryl. This closure was hemostatic. The bladder flap was copiously irrigated and found to be hemostatic. The pelvis was copiously irrigated and found to be hemostatic. The uterus was then placed back to the patient's abdomen. The retractors were removed. The rectus muscles were inspected and found to be hemostatic. The fascia was then closed in a running manner using 0 Vicryl. This incision was hemostatic irrigation Bovie. The skin was reapproximated with 4-0 Vicryl subcuticularly. The patient tolerated procedure well. Her urine was clear. The was admitted to the well baby nursery. The patient was accompanied to recovery room in good condition. Instrument count correct 3
[2017-04-10] MEDS ORDERED: ANCEF/NS 1 GM/50 ML 1 GM/50 ML BAG IV SCH (22:09)
[2017-04-10] MEDS ORDERED: TUCKS PAD TP PRN (22:09)
[2017-04-10] MEDS ORDERED: LANSINOH TP PRN (22:09)
[2017-04-10] MEDS ORDERED: D5LR 1,000 ML IV SCH (22:09)
[2017-04-11] MEDS: ceFAZolin 1 GM in NACL 0.9% 20 ML IV SCH ×2 (02:30→13:10)
[2017-04-11] MEDS: TORADOL IV SCH ×4 (05:03→20:38)
[2017-04-11 05:49] LABS: Hematocrit 18.1 % (30.3-42.9); Hemoglobin 5.6 gm/dl (10.1-14.3)
[2017-04-11] MEDS ORDERED: NACL 0.9% 500 ML 500 ML IV ONE (06:25)
[2017-04-11] MEDS ORDERED: BENADRYL PO ONE (06:30)
[2017-04-11] MEDS ORDERED: TYLENOL PO ONE (06:30)
--- NOTE | 2017-04-11 06:30 | Event Note ---
Date: 04/11/17 (post-op H&H 09/06) Spoke with Will order transfusion of 3 units PRBC. Pt consented
--- NOTE | 2017-04-11 07:27 | Progress Note ---
Assessment and Plan - Patient Problems (1) delivery delivered Onset Date: ~04/10/17 Current Visit: Yes Status: Acute Plan to address problem: Pt A&O X 3 No c/o voiced VSS FF below umb Lochia scant H&H 08/27 Pt has not been OOB but does not c/o any s/sx of anemia Transfusion ordered. Pt stable s/p repeat c/s with exception anemia P: continue pathway Transfuse 3 units. consulted also (2) Anemia Onset Date: ~04/11/17 Current Visit: Yes Status: Acute Qualifiers: Anemia type: iron deficiency Iron deficiency anemia type: other iron deficiency Qualified Code(s): D50.8 - Other iron deficiency anemias Plan to address problem: Post-op H&H 09/06 Abdomen is soft; pain/tenderness only @ incision site. Transfuse 3 units PRBC Consulted with . Pt aware and agrees to transfusion. Subjective - Subjective Date of service: 04/11/17 (pt w/o complaint; denies any s/sx of anemia) Principal diagnosis: Day # 1 s/p section Interval history: EDC Confirmation: 04/16/2017 Gestational Age: 8 weeks Past History : 2 Term Births: 1 Living Children: 1 Para: 1 Prev : 1 # 1 Delivery date: 2012 Weeks Gestation: term Delivery type: Anesthesia type: epidural Delivery location: [place] Sex: Male weight: 7 Comments: failure to dilate Risk Factors: Smoked Tobacco Use: Never smoker Smokeless Tobacco Use: Never Passive smoke exposure: no Drug use: no HIV high-risk behavior: low risk Caffeine use: 1 drinks per day Alcohol use: no Seatbelt use: 100 % Dietary Counseling: pn yes Past Medical History: Reviewed history and no changes required: Negative Past Medical History Past Surgical History: Past Medical History Surgery (Non-senior data modeler): Abnormal PAP: negative EZE Exposure: negative Infertility: negative Uterine Anomaly: negative Uterine Surgery (not C/S): negative Other Gynecologic Problems: negative Social Hx: Patient is single Smoking History: Patient has never smoked. Infection History Hx of STD: chlamydia HIV Risk Eval: low risk Hepatitis B Risk Eval: low risk Personal hx. of genital herpes: no Partner hx. of genital herpes: no Rash, Viral, or Febrile illness since last LMP? no Varicella/Chicken Pox Status: Previous Disease TB Risk: no Genetic History Congenital Heart Defect: Mom: no Dad: no Smooth Disease: Mom: no Dad: no Thalassemia Mom: no Dad: no Neural Tube Defect Mom: no Dad: no Down's Syndrome Mom: no Dad: no Ghassan-Sachs Mom: no Dad: no Sickle Cell Disease/Trait Mom: no Dad: no Hemophilia Mom: no Dad: no Muscular Dystrophy Mom: no Dad: no Cystic Fibrosis Mom: no Dad: no Alex Chorea Mom: no Dad: no Mental Retardation Mom: no Dad: no Fragile X Mom: no Dad: no Other Genetic/Chromosomal Disorder Mom: no Dad: no Child w/other defect Mom: no Dad: no Enviromental Exposures Xray Exposure: no Medication, drug, or alcohol use since LMP: no Chemical/Other Exposure: no Exposure to Cat Liter: no Hx of Parvovirus (Fifth Disease): no Occupational Exposure to Children: none Active Medications: ZOFRAN ODT 8 MG TBDP (ONDANSETRON) 1 po q12hrs prn Current Allergies: No known allergies Laboratory Results Date/Time Collected: 09/04/2016 Routine Urinalysis Leukocytes: 2+ Nitrite: negative Urobilinogen: negative Protein: Trace Blood: 1+ Ketone: negative Bilirubin: negative Glucose: Negative Urine HCG: positive Review of Systems General Denies fever, chills, sweats, anorexia, fatigue, weakness, malaise, weight loss and sleep disorder. Denies nausea, vomiting, headache, swelling of legs, abdominal pain, vaginal discharge, vaginal bleeding and contractions. Denies vaginal discharge, incontinence, dysuria, hematuria, urinary frequency, amenorrhea, menorrhagia, abnormal vaginal bleeding, pelvic pain, genital sores, decreased libido, painful periods, painful sex, urinary urgency, hot flashes, vaginal dryness, vaginal itching and vaginal odor. CV Denies chest pains, palpitations, syncope, dyspnea on exertion, orthopnea, PND and peripheral edema. Resp Denies cough, dyspnea at rest, excessive sputum, hemoptysis, wheezing and pleurisy. GI Denies nausea, vomiting, diarrhea, constipation, change in bowel habits, abdominal pain, melena, hematochezia, jaundice, gas/bloating, indigestion/ heartburn, dysphagia and odynophagia. Endo Denies cold intolerance, heat intolerance, polydipsia, polyphagia, polyuria and unusual weight change. Breast Denies left breast lump, right breast lump, nipple discharge, bloody discharge from nipple, breast pain, abnormal mammogram and breast enlargement. MS Denies back pain, joint pain, joint swelling, muscle cramps, muscle weakness, stiffness, arthritis, sciatica, restless legs, leg pain at night and leg pain with exertion. Derm Denies rash, itching, dryness and suspicious lesions. Neuro Denies paralysis, paresthesias, headache, seizures, tremors, vertigo, transient blindness, frequent falls, frequent headaches and difficulty walking. Psych Denies depression, anxiety, irritability and mood swings. Eyes Denies blurring, diplopia, irritation, discharge, vision loss, eye pain and photophobia. ENT Denies earache, ear discharge, tinnitus, decreased hearing, nasal congestion, nosebleeds, sore throat and hoarseness. Allergy Denies urticaria, allergic rash, hay fever and recurrent infections. Heme Denies abnormal bruising, bleeding and enlarged lymph nodes. Family History Summary: No Known Family History - Entered On: 09/04/2016 Social History: Patient is single Smoking History: Patient has never smoked. PHYSICAL EXAM HEENT: PERRLA, normal conjunctiva, external nose and nasal mucosa normal, oropharynx clear Neck/Thyroid: supple, thyroid normal Skin no significant abnormal lesions or rashes Chest: respiratory effort normal, clear to auscultation Breasts: normal without skin changes or masses CV: regular, normal S1-S2, no murmur, no rub, no gallop Abdomen: normal bowel sounds, soft, nontender, no HSM Musculoskeletal: grossly normal ROM in joints, no joint tenderness or muscle weakness Neuro: grossly normal DTRs, sensation, strength, cranial nerves Extremities: no clubbing, cyanosis, or edema Patient reports: voiding normally (camargo draining clear yellow urine) [place]ml[place]: doing well Objective - Vital Signs Latest vital signs: Vital Signs Temp Pulse Resp BP BP Pulse Ox 04/11/17 06:00 98.6 F 78 18 110/68 04/11/17 00:00 98.5 F 82 20 120/72 04/10/17 20:01 84 16 109/62 99 04/10/17 19:50 109/62 99 04/10/17 19:45 98.0 F 12/20/17 19:40 77 13 105/73 97 04/10/17 19:30 75 11 L 109/76 100 04/10/17 19:20 68 33 H 93/46 100 04/10/17 19:10 78 13 100 04/10/17 19:00 77 18 100 04/10/17 18:59 83 18 106/72 100 04/10/17 18:51 79 16 101/79 100 04/10/17 18:50 98.8 F 94 H 15 100 04/10/17 18:46 77 10 L 100 04/10/17 08:59 98.5 F 65 18 114/74 Intake and Output 04/10/17 04/11/17 04/11/17 22:59 06:59 14:59 Intake Total 100 Output Total 500 450 Balance -400 -450 Intake: IV 100 Output: Urine 500 450 Uretheral ([place]) 250 450 - Exam Breasts: Present: normal Cardiovascular: Present: Regular rate Lungs: Present: Normal air movement Abdomen: Present: normal appearance, soft, normal bowel sounds Uterus: Present: normal, fundal height below umbilicus Extremities: Present: normal, edema Deep Tendon Reflex Grade: Normal +2 Incision: Present: normal, dry, intact (lynne in place; no redness/swelling) - Labs Labs: Abnormal lab results 04/10/17 04/10/17 04/10/17 Range/Units 09:55 09:55 09:55 Hgb 8.5 L (10.1-14.3) gm/dl Hct 27.3 L (30.3-42.9) % MCV 72 L (79-97) fl MCH 23 L (28-32) pg RDW 17.3 H (13.2-15.2) % Seg Neutrophils % 77.2 H (40.0-70.0) % Seg Neutrophils # 7.9 H (1.8-7.7) K/mm3 Urine WBC (Auto) > 182.0 H (0.0-6.0) /HPF Crossmatch See Detail 04/11/17 Range/Units 05:10 Hgb 5.6 L* (10.1-14.3) gm/dl Hct 18.1 L* D (30.3-42.9) % MCV (79-97) fl MCH (28-32) pg RDW (13.2-15.2) % Seg Neutrophils % (40.0-70.0) % Seg Neutrophils # (1.8-7.7) K/mm3 Urine WBC (Auto) (0.0-6.0) /HPF Crossmatch
[2017-04-11] MEDS ORDERED: NACL 0.9% 500 ML 1,000 ML ONE (08:47)
[2017-04-11] MEDS ORDERED: BENADRYL PO NR (09:00)
[2017-04-11] MEDS ORDERED: TYLENOL PO NR (09:00)
[2017-04-11 23:34] LABS: Hematocrit 26.8 % (30.3-42.9)
[2017-04-12] MEDS: NORCO 5/325 PO PRN ×2 (05:34→16:38)
[2017-04-12] MEDS: MOTRIN PO PRN ×3 (05:36→23:09)
[2017-04-12] MEDS ORDERED: BOOSTRIX IM ONE (06:00)
--- NOTE | 2017-04-12 08:12 | Progress Note ---
Assessment and Plan patient doing well, no complaints. VSSAF, repeat H&H after transfusion 01/15. dressing removed, incision dry and intact. Continue postop care and anticipate d /c home tomorrow. - Patient Problems (1) Anemia Onset Date: ~04/11/17 Current Visit: Yes Status: Acute Qualifiers: Anemia type: iron deficiency Iron deficiency anemia type: other iron deficiency Qualified Code(s): D50.8 - Other iron deficiency anemias (2) delivery delivered Onset Date: ~04/10/17 Current Visit: Yes Status: Acute Subjective - Subjective Date of service: 04/12/17 Principal diagnosis: Day # 2 s/p section Patient reports: appetite normal, voiding normally, pain well controlled, flatus , ambulating normally, no dizzy ambulation, no nauseated : doing well, bottle feeding Objective - Vital Signs Latest vital signs: Vital Signs Temp Pulse Resp BP BP Pulse Ox 04/11/17 23:45 98.5 F 70 18 105/72 100 04/11/17 18:15 98.5 F 84 16 115/76 04/11/17 18:14 98.7 F 82 20 109/65 04/11/17 17:30 98.3 F 82 16 111/77 04/11/17 17:29 98.8 F 88 16 109/64 04/11/17 15:38 98.3 F 77 16 113/77 04/11/17 15:10 97.9 F 74 20 104/65 04/11/17 14:40 98.7 F 76 16 116/69 04/11/17 14:11 98.7 F 78 16 109/69 04/11/17 13:40 98.7 F 73 16 103/73 04/11/17 12:30 98.2 F 71 16 103/66 04/11/17 10:30 97.7 F 81 16 107/63 04/11/17 10:02 98.3 F 69 16 101/66 04/11/17 10:01 98.7 F 78 16 104/66 04/11/17 09:45 98.5 F 76 18 104/54 04/11/17 09:07 98.5 F 76 18 104/54 Intake and Output 04/11/17 04/12/17 04/12/17 23:59 07:59 15:59 Intake Total 860 Output Total 200 200 Balance 660 -200 Intake: Oral 360 Blood Product 500 Leukoreduced Red Blood 250 Cells Unit [id number] Leukoreduced Red Blood 250 Cells Unit [id number] Output: Urine 200 200 Indwelling Catheter 200 200 Other: Total, Intake Amount 240 Total, Output Amount 200 200 - Exam Breasts: Present: normal Cardiovascular: Present: Regular rate Lungs: Present: Clear to auscultation, Normal air movement Abdomen: Present: normal appearance, soft, normal bowel sounds Vulva: both: normal Uterus: Present: normal, firm, fundal height at umbilicus Extremities: Present: normal Deep Tendon Reflex Grade: Normal +2 Incision: Present: normal, dry, intact - Labs Labs: Abnormal lab results 04/10/17 04/11/17 Range/Units 09:55 23:06 Hgb 9.0 L D (10.1-14.3) gm/dl Hct 26.8 L D (30.3-42.9) % Crossmatch See Detail
--- NOTE | 2017-04-12 09:45 | Query-Anemia ---
Deaagustin Dc Date:__04/12/17 Corking Machine Operator/CDS:___Iwona Phone#:__[phone] Exercise your independent professional judgment when responding to this query. Questions asked do not imply a particular answer is desired or expected. We greatly appreciate your clarification on this issue. Clinical Documentation States: 26yo @ 39 weeks was admitted on 04/10/17. Operative Report(Dr. COBB 0n 04/10/17) states"Pre-operative diagnosis: Uterine at 39 weeks with previous section in labor Post-operative diagnosis: Same Procedure name(s): Repeat low transverse section EBL: 500 mL " /MEDICAL CSR Progress Note( ) states" Anemia Plan to address problem: Post-op H&H 09/06 Transfuse 3 units PRBC" Clinical Findings Show 04/10/17 04/11/17 Hgb 8.5 5.6 Hct 27.3 18.1 Treatment: Transfusion(s)__3 Units Etiology: [x ] Anemia due to acute blood loss [ ] Anemia due to chronic blood loss [ ] Anemia secondary to ESRD [ ] Anemia secondary to neoplastic disease [ ] Iron deficiency anemia due to malabsorption [ ] GI Bleed from: [ ] Anemia of chronic disease ,Other: [ ] Precipitous Drop in Hemoglobin [ ] Precipitous Drop in Hematocrit [ ] Other: [ ] Unable to determine [ ] Comment/Explanation: Present on Admission: [ ] Yes (Y) [ ] Clinically undeterminable (W) [x ] No (N) Please also document response in your Progress Notes and/or Discharge Summary and indicate if the condition was present on admission. MTDD
[2017-04-12] MEDS ORDERED: Fluarix Quad 2017-2018(36 MOS+ IM ONE (12:00)
[2017-04-12] MEDS: PRENATAL VITAMIN PO SCH (16:38)
[2017-04-12] MEDS: FEOSOL PO SCH (16:39)
[2017-04-13] MEDS: NORCO 5/325 PO PRN ×2 (07:44→13:05)
--- NOTE | 2017-04-13 11:22 | Discharge Summary ---
Providers - Providers Date of Admission: 04/10/17 11:05 Date of discharge: 04/13/17 Attending physician: SHEILA COBB 04/10/17 22:09 Consult to Gis Software Developer [CONS] Routine Reason For Exam: Primary care physician: SHEILA COBB Hospitalization Reason for admission: active labor Delivery: Procedure: section Procedure details: See operative note Incision: normal, dry, intact Other procedures: none complications: none Discharge diagnosis: IUP at term delivered baby: male Hospital course: Patient was admitted and underwent above procedure without complications. Her post operative course was benign she was afebrile throughout. Patient postoperative day 1 hematocrit was in an acceptable range. Patient had no orthostatic symptoms. Patient was tolerating regular diet and voiding without difficulty at time of discharge. Patient incision was healing well without evidence of infection. 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 (4) Previous section Status: Chronic Plan - Discharge Medications Prescriptions: Ferrous Sulfate [Feosol 325 MG tab] 325 mg PO BID #60 tablet Ibuprofen [Motrin 800 MG tab] 800 mg PO Q6H PRN #30 tablet PRN Reason: Pain oxyCODONE /ACETAMINOPHEN [Percocet 5/325 mg] 1 - 2 tab PO Q4H PRN #30 tablet PRN Reason: Pain, Moderate - Provider Discharge Summary Activity: routine, no sex for 6 weeks, no heavy lifting 4 weeks, no strenuous exercise Diet: routine Instructions: routine Additional instructions: [] Smoking cessation referral if applicable(refer to patient education folder for contact #) [] Refer to [facility] Booklet Call your doctor immediately for: * Fever > 100.5 * Heavy vaginal bleeding ( >1 pad per hour) * Severe persistent headache * Shortness of breath * Reddened, hot, painful area to leg or breast * Drainage or odor from incision. * Keep incision clean and dry at all times and follow doctor's instructions regarding bathing/showering Patient office for fever chills nausea vomiting or pain uncontrolled by pain relief. Patient instructed no heavy lifting 6 weeks. No sex for 6 weeks. Patient to keep scheduled appointment. Patient to schedule circumcision for her son - Follow up plan Follow up: SHEILA COBB MD [Primary Care Provider] - 7 Days
[2017-04-13] MEDS: PRENATAL VITAMIN PO SCH (13:04)
[2017-04-13] MEDS: FEOSOL PO SCH (13:04)
[2017-04-13] MEDS: MOTRIN PO PRN (13:05)
[2017-04-13 18:45] VITALS: BP 106/67
== END 2017-04-13 16:43 | disposition home or self-care (01) | DRG 765 ==
LOC: TRG 08:57 → LD 08:58 → TRG 11:03 → LD 11:05 → OB 21:10
PROVIDERS: ADMIT Obstetrics & Gynecology; ATTEND Obstetrics & Gynecology
PROC: 10D00Z1 Extraction of Products of Conception, Low, Open Approach (ICD-10-PCS; principal; 2017-04-10)
PROC: 30233N1 Transfusion of Nonautologous Red Blood Cells into Peripheral Vein, Percutaneous Approach (ICD-10-PCS; 2017-04-11)
PROC: 3E0234Z Introduction of Serum, Toxoid and Vaccine into Muscle, Percutaneous Approach (ICD-10-PCS; 2017-04-12)
DX: O34.211 Maternal care for low transverse scar from previous cesarean delivery (principal); D62 Acute posthemorrhagic anemia; O99.03 Anemia complicating the puerperium; O99.824 Streptococcus B carrier state complicating childbirth; Z3A.39 39 weeks gestation of pregnancy; Z37.0 Single live birth; Z23 Encounter for immunization
CPT/HCPCS: 36415; 81001; 85014; 85018; 85025; 86850; 86900; 86901; 86920; 90471; 90686; 90715; C1765; G0008; J0690; J1885; J2270; J2370; J2405; J2590; J2765; J7040; J7120; P9016

== ENCOUNTER 2017-04-12 11:30 | Inpatient (IN) | payer MEDICAID ==
[2017-04-20] MEDS ORDERED: BENADRYL PO PRN (11:44)
[2017-04-20] MEDS ORDERED: MILK OF MAGNESIA PO PRN (11:44)
[2017-04-20] MEDS ORDERED: PHENERGAN PO PRN (11:44)
[2017-04-20] MEDS ORDERED: ZOFRAN IV PRN (11:44)
[2017-04-20] MEDS ORDERED: DULCOLAX PR PRN (11:44)
[2017-04-20] MEDS ORDERED: TUCKS PAD TP PRN (11:44)
[2017-04-20] MEDS ORDERED: LANSINOH TP PRN (11:44)
[2017-04-20] MEDS ORDERED: SODIUM CHLORIDE FLUSH SYRINGE 10 ML IV SCH (12:00)
[2017-04-20] MEDS ORDERED: MAGNESIUM SULFATE 40GM/1000ML 40 GM/1,000 ML BAG IV ONE (12:45)
[2017-04-20] MEDS ORDERED: APRESOLINE IV PRN (12:46)
[2017-04-20] MEDS ORDERED: LACTATED RINGERS 1,000 ML IV SCH (13:00)
[2017-04-20] MEDS ORDERED: MAGNESIUM SULFATE 40GM/1000ML 40 GM/1,000 ML BAG IV SCH (14:00)
[2017-04-20 14:05] LABS: Hematocrit 33.5 % (30.3-42.9); Hemoglobin 10.7 gm/dl (10.1-14.3); Mean Corpuscular HGB Conc 32 % (30-34); Mean Corpuscular Volume 80 fl (79-97); Platelet Count 444 K/mm3 (140-440); Red Blood Count 4.21 M/mm3 (3.65-5.03)
[2017-04-20 14:06] LABS: Mean Corpuscular Hemoglobin 26 pg (28-32); Red Cell Distribution Width 20.6 % (13.2-15.2)
[2017-04-20 14:46] LABS: Alanine Aminotransferase 21 units/L (7-56); Uric Acid 4.2 mg/dL (3.5-7.6)
--- NOTE | 2017-04-20 16:50 | History and Physical Report ---
History of Present Illness Date of examination: 04/20/17 (received call from [facility] ED Pt there with LOPEZ and elevated BP) Date of admission: 04/20/17 12:52 Chief complaint: sudden onset LOPEZ 10 days PP History of present illness: Pt went to [facility] this AM with sudden onset LOPEZ. Her eval there PP PreE. Received call to transport to [facility]. Accepted per . Pt admitted to M/B unit. Admission BP 148/107. MGSO4 loading dose had been given Operative Report Operative Report: Date of procedure: 04/10/2017 Pre-operative diagnosis: Uterine at 39 weeks with previous section in labor Post-operative diagnosis: Same Procedure name(s): Repeat low transverse section Surgeon: Kike Mead MD Peanut Vendor: LENNIE Anesthesia: Spinal EBL: 500 mL Complications: None Findings: Normal uterus tubes and ovaries bilaterally male weight 7 lbs. 7 oz. Apgars 8 at 1 minute and 9 at 5 minutes Specimen(s): None Procedure: The patient was brought to the operating room. A spinal was placed without any complications. She was then placed in left lateral tilt. Prepped and draped in the usual sterile manner. After testing for adequate anesthesia level, a Pfannenstiel incision was made through her previous scar. This incision was taken down to the fascia. The fascia was then nicked in the midline. This incision was extended out laterally with Seals scissors. The fascia was then sharply and bluntly from the underlying rectus muscles. The rectus muscles were bluntly and sharply . The peritoneum was then entered with the unit reactor operator's fingers. This incision was spread vertically with care not to damage the bladder below. The bladder flap was then formed sharply and bluntly with Metzenbaum scissors. The David self- retaining tractor was then placed without any difficulty. A transverse incision was made in lower uterine segment. This incision was extended laterally with the operators fingers. The amniotic sac was then entered bluntly with the unit reactor operator's fingers. The infant was delivered from the vertex position with assistance of a vacuum. Bulb suction on the mother's abdomen. Cord was double clamped and cut. The was then passed to the nursery personnel who were in attendance. The above scores were given by the nursery personnel. The placenta was then bluntly removed. The uterus was then externalized and wiped clean the remaining products. The uterine incision was closed in layers. The first incision was closed in a locking manner using 0 Vicryl. This was followed by imbricating stitch also with 0 Vicryl. This closure was hemostatic. The bladder flap was copiously irrigated and found to be hemostatic. The pelvis was copiously irrigated and found to be hemostatic. The uterus was then placed back to the patient's abdomen. The retractors were removed. The rectus muscles were inspected and found to be hemostatic. The fascia was then closed in a running manner using 0 Vicryl. This incision was hemostatic irrigation Bovie. The skin was reapproximated with 4-0 Vicryl subcuticularly. The patient tolerated procedure well. Her urine was clear. The was admitted to the well baby nursery. The patient was accompanied to recovery room in good condition. Instrument count correct 3 Past History - Obstetrical History : 2 Para: 2 Number of Living Children: 2 Medications and Allergies Allergies Allergy/AdvReac Type Severity Reaction Status Date / Time No Known Allergies Allergy Verified 08/21/16 16:26 Home Medications Medication Instructions Recorded Confirmed Last Taken Type Vit No.130/Iron/Folic 1 each PO QDAY #90 tablet 08/21/16 04/20/1704/10 09:00 Rx [ Tablet] Nitrofurantoin [place]/M-Cryst 100 mg PO Q12HR #14 capsule 08/26/16 04/20/17 Unknown Rx [Macrobid CAP] Ferrous Sulfate [Feosol 325 MG tab] 325 mg PO BID #60 tablet 04/10/17 04/20/17 Unknown Rx Ibuprofen [Motrin 800 MG tab] 800 mg PO Q6H PRN #30 tablet 04/10/17 04/20/17 Unknown Rx oxyCODONE /ACETAMINOPHEN [Percocet 1 - 2 tab PO Q4H PRN #30 tablet 04/10/17 Unknown Rx 5/325 mg] Lidocain2.5%/Prilocai2.5% [Emla] 5 gm TP ONCE #1 tube 04/13/17 04/20/17 Unknown Rx Active Meds: Active Medications Acetaminophen (Tylenol) 650 mg PO Q4H PRN PRN Reason: Pain MILD(1-3)/Fever >100.5/LOPEZ Bisacodyl (Dulcolax) 10 mg HI BID PRN PRN Reason: Constipation Diphenhydramine HCl (Benadryl) 25 mg PO Q6H PRN PRN Reason: Itching Hydralazine HCl (Apresoline) 5 mg IV Q30MIN PRN PRN Reason: Hypertension Magnesium Sulfate (Magnesium Sulfate 40gm/1000ml) 40 gm in 1,000 mls @ 50 mls/ hr IV DIRECT CRISSY PRN Reason: 2 GM/HR Lactated Ringer's (Lactated Ringers) 1,000 mls @ 100 mls/hr IV DIRECT CRISSY Magnesium Hydroxide (Milk Of Magnesia) 30 ml PO HS PRN PRN Reason: Constipation Multi-Ingredient Ointment (Lansinoh) 1 applic TP PRN PRN PRN Reason: Sore Nipples Ondansetron HCl (Zofran) 4 mg IV Q8H PRN PRN Reason: Nausea And Vomiting Promethazine HCl (Phenergan) 25 mg PO Q6H PRN PRN Reason: Nausea And Vomiting Sodium Chloride (Sodium Chloride Flush Syringe 10 Ml) 10 ml IV PRN CRISSY Witch Estefani/Glycerin (Tucks Pad) 1 each TP PRN PRN PRN Reason: Hemorrhoid/cleansing/soothing - Vital Signs Vital signs: Vital Signs Temp Pulse Resp BP 98.6 F 84 20 148/107 04/20/17 12:15 04/20/17 12:15 04/20/17 12:15 04/20/17 12:15 Temp Pulse Resp BP Pulse Ox 98.6 F 84 20 131/99 04/20/17 12:15 04/20/17 12:15 04/20/17 12:15 04/20/17 13:00 - Physical Exam Breasts: Positive: normal Cardiovascular: Regular rate, Normal S1, Normal S2 Lungs: Positive: Clear to auscultation, Normal air movement Abdomen: Positive: normal appearance, soft, normal bowel sounds. Negative: distention, tenderness Genitourinary (Female): Positive: normal external genitalia Vulva: both: normal Vagina: Positive: normal moisture. Negative: discharge Cervix: Negative: lesion, discharge Uterus: Positive: normal size, normal contour Adnexa: both: normal Anus/Rectum: Positive: normal perianal skin, heme negative. Negative: rectal mass, hemorrhoids Extremities: Positive: edema Deep Tendon Reflex Grade: Normal but brisk +3 Results Result Diagrams: 04/20/17 13:48 04/20/17 13:48 Abnormal lab results 04/20/17 04/20/17 Range/Units 13:48 13:48 WBC 11.3 H (4.5-11.0) K/mm3 MCH 26 L (28-32) pg RDW 20.6 H (13.2-15.2) % Plt Count 444 H (140-440) K/mm3 Creatinine 0.4 L (0.7-1.2) mg/dL Lactate Dehydrogenase 449 H (91-180) units/L All other labs normal. Assessment and Plan - Patient Problems (1) Pre-eclampsia, Onset Date: ~04/20/17 Current Visit: No Status: Acute Plan to address problem: Pt admitted to M/B All orders in EMR. aware of admission. Had a lengthy discussion with pt @ PreE and that LOPEZ comes with elevated BP. Praised her that she went to [facility] for evaluation. All questions were addressed. Pt encouraged to have RN call me with any concerns.
[2017-04-20 19:15] LABS: Bilirubin,Urine NEG (Negative); Blood,Urine LG (Negative); Color,Urine Straw (Yellow); Mucus,Urine FEW /HPF; Nitrite,Urine NEG (Negative); Protein,Urine <15 mg/dL mg/dL (Negative); Urobilinogen,Urine < 2.0 mg/dL (<2.0)
[2017-04-20 23:04] LABS: Hematocrit 35.3 % (30.3-42.9); Hemoglobin 11.5 gm/dl (10.1-14.3)
[2017-04-21] MEDS: TYLENOL PO PRN (00:13)
[2017-04-21] MEDS: LACTATED RINGERS 1,000 ML IV SCH (00:15)
--- NOTE | 2017-04-21 10:25 | Progress Note ---
Assessment and Plan - Patient Problems (1) Pre-eclampsia, Onset Date: ~04/20/17 Current Visit: No Status: Acute Plan to address problem: Pt lying in bed in dark room when I made rounds. BP 120/80 Mag level 6.8 MGSO4 turned off. DTRs wnl Negative edema. Pt denies LOPEZ, blurred vision, chest pain. Improving status PP PreE P: Discussed with pt my concerns @ PP blues and depression. Encouraged to be OOB, shower, and try to eat. Suggested she have family bring in some of her favorite foods - NO SALT. Also encouraged to ambulate in hallway. Continue to closely monitor BP and for any s/sx of PreE. Will monitor for s/sx of depression. (2) Blues Onset Date: ~04/21/17 Current Visit: Yes Status: Acute Plan to address problem: Pt has been hospitalized since yesterday. There has not been family with her during my visits. Her demeanor is quiet, she states she has no appetite. Will off MH eval and will monitor for worsening s/sx. Pt agrees to consult. Subjective - Subjective Date of service: 04/21/17 (pt feeling blue; "I have no appetite.") Principal diagnosis: PreE; S/P section 11 days ago Interval history: Pt went to [facility] this AM with sudden onset LOPEZ. Her eval there PP PreE. Received call to transport to [facility]. Accepted per . Pt admitted to M/B unit. Admission BP 148/107. MGSO4 loading dose had been given Operative Report Operative Report: Date of procedure: 04/10/2017 Pre-operative diagnosis: Uterine at 39 weeks with previous section in labor Post-operative diagnosis: Same Procedure name(s): Repeat low transverse section Surgeon: Kike Mead MD Organic Chemistry Professor: LENNIE Anesthesia: Spinal EBL: 500 mL Complications: None Findings: Normal uterus tubes and ovaries bilaterally male weight 7 lbs. 7 oz. Apgars 8 at 1 minute and 9 at 5 minutes Specimen(s): None Procedure: The patient was brought to the operating room. A spinal was placed without any complications. She was then placed in left lateral tilt. Prepped and draped in the usual sterile manner. After testing for adequate anesthesia level, a Pfannenstiel incision was made through her previous scar. This incision was taken down to the fascia. The fascia was then nicked in the midline. This incision was extended out laterally with Seals scissors. The fascia was then sharply and bluntly from the underlying rectus muscles. The rectus muscles were bluntly and sharply . The peritoneum was then entered with the oxygraph operator's fingers. This incision was spread vertically with care not to damage the bladder below. The bladder flap was then formed sharply and bluntly with Metzenbaum scissors. The David self- retaining tractor was then placed without any difficulty. A transverse incision was made in lower uterine segment. This incision was extended laterally with the operators fingers. The amniotic sac was then entered bluntly with the oxygraph operator's fingers. The was delivered from the vertex position with assistance of a vacuum. Bulb suction on the mother's abdomen. Cord was double clamped and cut. The was then passed to the nursery personnel who were in attendance. The above scores were given by the nursery personnel. The placenta was then bluntly removed. The uterus was then externalized and wiped clean the remaining products. The uterine incision was closed in layers. The first incision was closed in a locking manner using 0 Vicryl. This was followed by imbricating stitch also with 0 Vicryl. This closure was hemostatic. The bladder flap was copiously irrigated and found to be hemostatic. The pelvis was copiously irrigated and found to be hemostatic. The uterus was then placed back to the patient's abdomen. The retractors were removed. The rectus muscles were inspected and found to be hemostatic. The fascia was then closed in a running manner using 0 Vicryl. This incision was hemostatic irrigation Bovie. The skin was reapproximated with 4-0 Vicryl subcuticularly. The patient tolerated procedure well. Her urine was clear. The infant was admitted to the well baby nursery. The patient was accompanied to recovery room in good condition. Instrument count correct 3 Patient reports: voiding normally, pain well controlled, appetite poor, ambulating normally Objective - Vital Signs Latest vital signs: Vital Signs Temp Pulse Resp BP BP Pulse Ox 04/21/17 03:20 99.2 F 87 14 118/86 97 04/21/17 02:10 99.2 F 90 12 130/84 100 04/21/17 00:13 18 04/21/17 00:07 20 130/91 04/21/17 00:00 99 F 88 16 130/91 04/20/17 23:12 95 H 99 04/20/17 23:07 128/91 04/20/17 23:06 128/91 04/20/17 22:48 126/87 04/20/17 22:46 125/92 04/20/17 22:00 98.9 F 99 H 14 126/87 04/20/17 20:10 121/83 04/20/17 19:48 99.4 F 126 H 16 118/61 04/20/17 18:42 115/80 04/20/17 18:00 115/80 04/20/17 16:40 119/82 04/20/17 15:24 98.2 F 76 16 122/82 99 04/20/17 14:00 144/99 04/20/17 13:00 131/99 04/20/17 12:15 98.6 F 84 20 148/107 Intake and Output 04/20/17 04/21/17 04/21/17 22:59 06:59 14:59 Intake Total 480 300 Output Total 1400 1600 Balance -920 -1300 Intake: Oral 480 Intake, Free Water 300 Output: Urine 1400 1600 Void 1000 1600 Other: Total, Intake Amount 480 Total, Output Amount 600 800 Voiding Method Toilet # Bowel Movements 0 - Exam Breasts: Present: normal Cardiovascular: Present: Regular rate Lungs: Present: Clear to auscultation, Normal air movement Abdomen: Present: normal appearance, soft, normal bowel sounds Extremities: Present: normal Deep Tendon Reflex Grade: Normal +2 - Labs Labs: Abnormal lab results 04/20/17 04/20/17 04/20/17 Range/Units 13:48 13:48 16:24 WBC 11.3 H (4.5-11.0) K/mm3 MCH 26 L (28-32) pg RDW 20.6 H (13.2-15.2) % Plt Count 444 H (140-440) K/mm3 Creatinine 0.4 L (0.7-1.2) mg/dL Magnesium 5.00 H (1.7-2.3) mg/dL Lactate Dehydrogenase 449 H (91-180) units/L Urine WBC (Auto) (0.0-6.0) /HPF 04/20/17 04/20/17 04/21/17 Range/Units 18:30 22:44 04:19 WBC (4.5-11.0) K/mm3 MCH (28-32) pg RDW (13.2-15.2) % Plt Count (140-440) K/mm3 Creatinine (0.7-1.2) mg/dL Magnesium 6.70 H 6.80 H (1.7-2.3) mg/dL Lactate Dehydrogenase (91-180) units/L Urine WBC (Auto) 7.0 H (0.0-6.0) /HPF
--- NOTE | 2017-04-22 04:52 | Event Note ---
Date: 04/22/17 (pt noted to have fever) Temp 101.6 CXR and blood cultures ordered Dr.Meziere guardado. Pt given Tylenol.
--- NOTE | 2017-04-22 05:08 | XRay Report ---
FINAL REPORT EXAM: XR CHEST 1V AP HISTORY: postop fever date of surgery 04/10/2017 TECHNIQUE: AP portable view(s) of the chest obtained. PRIORS: None. FINDINGS: No mediastinal shift. Cardiac silhouette is not enlarged for portable technique. Mild hypoaeration of the lungs. No pneumothorax, effusion, or focal pulmonary opacity identified. No acute skeletal findings. IMPRESSION: No acute pulmonary finding identified.
--- NOTE | 2017-04-22 06:23 | Progress Note ---
<FRANK EATON - Last Filed: 04/22/17 06:15> Assessment and Plan - Patient Problems (1) Pre-eclampsia, Onset Date: ~04/20/17 Current Visit: No Status: Acute Plan to address problem: pt resting quietly No c/o LOPEZ, blurred vision, chest pain BP 120/90s BP during rounds 134/92. CXR wnl. Blood cultures drawn. Pt encouraged to hydrate, ambulate. Will consult / for antihypertensive. (2) Blues Onset Date: ~04/21/17 Current Visit: Yes Status: Acute Plan to address problem: pt was seen by and cleared for d/c. pt states she does feel better and has been eating more Subjective - Subjective Date of service: 04/22/17 (pt states she is feeling better) Principal diagnosis: PreE; S/P section 12 days ago Interval history: Pt went to [facility] this AM with sudden onset LOPEZ. Her eval there PP PreE. Received call to transport to [facility]. Accepted per . Pt admitted to M/B unit. Admission BP 148/107. MGSO4 loading dose had been given Operative Report Operative Report: Date of procedure: 04/10/2017 Pre-operative diagnosis: Uterine at 39 weeks with previous section in labor Post-operative diagnosis: Same Procedure name(s): Repeat low transverse section Surgeon: Kike Mead MD Product Management Analyst: LENNIE Anesthesia: Spinal EBL: 500 mL Complications: None Findings: Normal uterus tubes and ovaries bilaterally male infant weight 7 lbs. 7 oz. Apgars 8 at 1 minute and 9 at 5 minutes Specimen(s): None Procedure: The patient was brought to the operating room. A spinal was placed without any complications. She was then placed in left lateral tilt. Prepped and draped in the usual sterile manner. After testing for adequate anesthesia level, a Pfannenstiel incision was made through her previous scar. This incision was taken down to the fascia. The fascia was then nicked in the midline. This incision was extended out laterally with Seals scissors. The fascia was then sharply and bluntly from the underlying rectus muscles. The rectus muscles were bluntly and sharply . The peritoneum was then entered with the discharging machine operator's fingers. This incision was spread vertically with care not to damage the bladder below. The bladder flap was then formed sharply and bluntly with Metzenbaum scissors. The David self- retaining tractor was then placed without any difficulty. A transverse incision was made in lower uterine segment. This incision was extended laterally with the operators fingers. The amniotic sac was then entered bluntly with the discharging machine operator's fingers. The was delivered from the vertex position with assistance of a vacuum. Bulb suction on the mother's abdomen. Cord was double clamped and cut. The infant was then passed to the nursery personnel who were in attendance. The above scores were given by the nursery personnel. The placenta was then bluntly removed. The uterus was then externalized and wiped clean the remaining products. The uterine incision was closed in layers. The first incision was closed in a locking manner using 0 Vicryl. This was followed by imbricating stitch also with 0 Vicryl. This closure was hemostatic. The bladder flap was copiously irrigated and found to be hemostatic. The pelvis was copiously irrigated and found to be hemostatic. The uterus was then placed back to the patient's abdomen. The retractors were removed. The rectus muscles were inspected and found to be hemostatic. The fascia was then closed in a running manner using 0 Vicryl. This incision was hemostatic irrigation Bovie. The skin was reapproximated with 4-0 Vicryl subcuticularly. The patient tolerated procedure well. Her urine was clear. The was admitted to the well baby nursery. The patient was accompanied to recovery room in good condition. Instrument count correct 3 Patient reports: appetite normal, voiding normally, ambulating normally Objective - Vital Signs Latest vital signs: Vital Signs Temp Pulse Resp BP Pulse Ox 04/22/17 00:00 101.6 F H 76 18 128/96 04/21/17 20:00 99.9 F H 89 20 126/92 04/21/17 16:00 99.5 F 99 H 20 120/91 99 04/21/17 12:46 98.2 F 105 H 18 136/82 04/21/17 09:00 98.6 F 106 H 16 129/91 Intake and Output 04/21/17 04/21/17 04/22/17 14:59 22:59 06:59 Intake Total 600 240 Output Total 900 Balance -300 240 Intake: Oral 600 240 Output: Urine 900 Void 900 Other: Total, Intake Amount 240 240 Total, Output Amount 300 Voiding Method Toilet # Voids Void 1 - Exam Breasts: Present: normal Cardiovascular: Present: Regular rate Lungs: Present: Clear to auscultation Abdomen: Present: normal appearance, soft Uterus: Present: normal Extremities: Present: normal Incision: Present: normal - Labs Labs: Abnormal lab results 04/21/17 Range/Units 10:25 Magnesium 6.20 H (1.7-2.3) mg/dL <FAITH MEADOWS D - Last Filed: 04/22/17 08:53> Assessment and Plan Patient resting in bed, no complaints, denies LOPEZ, visual changes, cough, dysuria , RUQ pain, nausea/vomiting, vaginal discharge or bleeding Lungs CTA(B) Abd soft, NT, BS Exts: NT, no edema, negative Jack Incision: C/D/I, no s/s infection PP Preeclampsia, BP 's stable, s/p MgSO4, now elevated T: 101.6 at 0000, uncertain etiology. BC x2 pending, CXR negative Hold Antibiotics for now, encourage ambulation. Objective - Vital Signs Latest vital signs: Vital Signs Temp Pulse Resp BP Pulse Ox 04/22/17 04:05 98.6 F 63 18 134/92 04/22/17 00:00 101.6 F H 76 18 128/96 04/21/17 20:00 99.9 F H 89 20 126/92 04/21/17 16:00 99.5 F 99 H 20 120/91 99 04/21/17 12:46 98.2 F 105 H 18 136/82 04/21/17 09:00 98.6 F 106 H 16 129/91 Intake and Output 04/21/17 04/22/17 04/22/17 22:59 06:59 14:59 Intake Total 240 120 Balance 240 120 Intake: Oral 240 120 Other: Total, Intake Amount 240 120 # Voids Void 1 1 - Labs Labs: Abnormal lab results 04/21/17 Range/Units 10:25 Magnesium 6.20 H (1.7-2.3) mg/dL
[2017-04-22] MEDS: TYLENOL PO PRN ×2 (12:36→23:48)
[2017-04-22] MEDS ORDERED: NORMODYNE ONE (17:54)
[2017-04-22] MEDS: NORMODYNE PO SCH (22:12)
[2017-04-22] MEDS: ceFAZolin 2 GM in NACL 0.9% 20 ML IV SCH (22:13)
[2017-04-22] MEDS: LACTATED RINGERS 1,000 ML IV SCH (22:14)
[2017-04-23] MEDS: ceFAZolin 2 GM in NACL 0.9% 20 ML IV SCH ×3 (05:39→21:55)
--- NOTE | 2017-04-23 08:02 | Progress Note ---
Assessment and Plan patient resting, no complaints. denies LOPEZ, blurred vision or upper abd pain. Fever spiked to 102.9 last night, b/p's also elevated to 186/92 at that time, otherwise b/p's are running 130-150/80-90's. Patient denies feeling ill or chills. Will continue current management w/ PO labetalol and IV ancef. CXR normal, UC pending, blood cultures neg after 24hs. Will updated Dr. Renee on patient's condition. - Patient Problems (1) Fever and other physiologic disturbances of temperature regulation Current Visit: Yes Status: Acute (2) Pre-eclampsia, Onset Date: ~04/20/17 Current Visit: Yes Status: Acute Subjective - Subjective Date of service: 04/23/17 (Traffic Inspector note) Principal diagnosis: PreE & fever; S/P section 13 days ago Patient reports: appetite normal, voiding normally, pain well controlled, ambulating normally, no dizzy ambulation, no nauseated Objective - Vital Signs Latest vital signs: Vital Signs Temp Pulse Resp BP BP Pulse Ox 04/23/17 04:00 99.7 F H 97 H 18 130/82 04/23/17 01:31 93 H 145/94 04/23/17 01:27 91 H 155/95 04/23/17 01:22 87 151/97 04/23/17 00:57 102.9 F H 86 18 186/92 04/22/17 22:15 100.4 F H 71 16 158/98 100 04/22/17 22:12 71 158/98 04/22/17 20:00 99.6 F 72 18 130/91 04/22/17 18:03 60 154/102 04/22/17 18:00 99.9 F H 60 154/102 04/22/17 17:25 99 F 66 18 146/95 04/22/17 13:00 98.8 F 04/22/17 12:00 100 F H 100 H 18 138/98 04/22/17 08:05 98.8 F 109 H 18 133/98 Intake and Output 04/22/17 04/22/17 04/23/17 15:59 23:59 07:59 Intake Total 600 360 240 Balance 600 360 240 Intake: Oral 600 360 240 Other: Total, Intake Amount 360 360 240 Voiding Method Toilet Toilet # Voids Void 1 1 1 - Exam Breasts: Present: normal Cardiovascular: Present: Regular rate Lungs: Present: Clear to auscultation, Normal air movement Abdomen: Present: normal appearance, soft, normal bowel sounds Uterus: Present: normal, firm, fundal height below umbilicus Extremities: Present: normal Deep Tendon Reflex Grade: Normal +2 Incision: Present: normal, dry
[2017-04-23] MEDS: NORMODYNE PO SCH ×2 (10:22→21:32)
[2017-04-23] MEDS: TYLENOL PO PRN ×2 (10:37→21:32)
[2017-04-23] MEDS ORDERED: TYLENOL PR PRN (11:30)
--- NOTE | 2017-04-23 11:54 | Event Note ---
Date: 04/23/17 received call from RN, patient temp spiked to 103 and she is having pain/ redness/stiffness in her left arm around her elbow. patient had IV placed in L AC by EMS. Order for doppler study, Tylenol CA and Dr. Renee made aware.
--- NOTE | 2017-04-23 16:12 | Vascular Lab Report ---
LEFT UPPER EXTREMITY VENOUS DUPLEX: REASON FOR EXAM: DVT of the LUE COMMENTS ON THE LEFT: A small superficial thrombus is seen in the cephalic vein just above the elbow. The remaining veins visualized are freely compressible without evidence of internal echogenicity. Spontaneous and phasic flow is present proximally. COMMENTS ON THE RIGHT: A limited study of the jugular and subclavian veins shows no evidence of thrombus. IMPRESSION: Small superficial thrombus in the left cephalic vein just above the elbow. No deep venous thrombosis of the Left upper extremity.
--- NOTE | 2017-04-23 16:55 | Event Note ---
Date: 04/23/17 Dr. Renee made aware of doppler study results, plan made to consult hospitalist. Spoke with Dr. Dial; he is aware of consult. consult placed in EMR.
--- NOTE | 2017-04-23 18:49 | Event Note ---
Date: 04/23/17 Pt seen an examined with exception of induration and warmth noted above the elbow on left arm pt exam is normal. Superficial thrombus noted.She gutierrez not appear ill. She did have another temp despite being on ancef. Pt urine cx appears to be possible contaminant and final results are pending. Blood cultures are also negative. Medicine has been consulted. If there is another spike will also obtain ID consult as there does not appear to be an obvious source of infection. Plan of care d/w pt and questions were addressed and answered.
--- NOTE | 2017-04-23 19:10 | History and Physical Report ---
History of Present Illness Date of admission: 04/20/17 12:52 Chief complaint: My fever is high, but i feel fine History of present illness: 26 YO Female admitted for preeclampsia consulted by Dr. Roca for fever. Pt states that she has experienced fever over the past 4 days. Pt found to have a temperature to 103 today while on Ancef Day #2. Pt denies shaking chills, sore throat, cough, CP, palpitations, NVD, Syncope, Leg swelling/Calf pain, indidivual/family history of DVT/PE, breast tenderness, hematuria, urgency , frequency, flank pain, back pain, skin rashes. Pt underwent LUE duplex which revealed a superficial venous thrombosis. Pt resting well in bed and denies any current complaints. Past History Past Medical History: other ( preeclampsia) Past Surgical History: Social history: single. denies: smoking, alcohol abuse, prescription drug abuse Family history: no significant family history (reviewed) Medications and Allergies Allergies Allergy/AdvReac Type Severity Reaction Status Date / Time No Known Allergies Allergy Verified 08/21/16 16:26 Home Medications Medication Instructions Recorded Confirmed Last Taken Type Vit No.130/Iron/Folic 1 each PO QDAY #90 tablet 08/21/16 04/20/1704/10 09:00 Rx [ Tablet] Nitrofurantoin [place]/M-Cryst 100 mg PO Q12HR #14 capsule 08/26/16 04/20/17 Unknown Rx [Macrobid CAP] Ferrous Sulfate [Feosol 325 MG tab] 325 mg PO BID #60 tablet 04/10/17 04/20/17 Unknown Rx Ibuprofen [Motrin 800 MG tab] 800 mg PO Q6H PRN #30 tablet 04/10/17 04/20/17 Unknown Rx oxyCODONE /ACETAMINOPHEN [Percocet 1 - 2 tab PO Q4H PRN #30 tablet 04/10/17 Unknown Rx 5/325 mg] Lidocain2.5%/Prilocai2.5% [Emla] 5 gm TP ONCE #1 tube 04/13/17 04/20/17 Unknown Rx Active Meds: Active Medications Acetaminophen (Tylenol) 650 mg PO Q4H PRN PRN Reason: Pain MILD(1-3)/Fever >100.5/LOPEZ Last Admin: 04/23/17 10:37 Dose: 650 mg Acetaminophen (Tylenol) 650 mg IN Q4H PRN PRN Reason: Pain, Mild (1-3) Bisacodyl (Dulcolax) 10 mg IN BID PRN PRN Reason: Constipation Diphenhydramine HCl (Benadryl) 25 mg PO Q6H PRN PRN Reason: Itching Hydralazine HCl (Apresoline) 5 mg IV Q30MIN PRN PRN Reason: Hypertension Last Admin: 04/23/17 01:17 Dose: 5 mg Lactated Ringer's (Lactated Ringers) 1,000 mls @ 100 mls/hr IV DIRECT [facility] Last Admin: 04/22/17 22:14 Dose: 100 mls/hr Cefazolin Sodium 2 gm/ Sodium (Chloride) 20 mls @ 20 mls/10 min IV Q8HR [facility] PRN Reason: Protocol Last Admin: 04/23/17 13:50 Dose: 20 mls/10 min Labetalol HCl (Normodyne) 200 mg PO BID [facility] Last Admin: 04/23/17 10:22 Dose: 200 mg Magnesium Hydroxide (Milk Of Magnesia) 30 ml PO HS PRN PRN Reason: Constipation Multi-Ingredient Ointment (Lansinoh) 1 applic TP PRN PRN PRN Reason: Sore Nipples Ondansetron HCl (Zofran) 4 mg IV Q8H PRN PRN Reason: Nausea And Vomiting Promethazine HCl (Phenergan) 25 mg PO Q6H PRN PRN Reason: Nausea And Vomiting Sodium Chloride (Sodium Chloride Flush Syringe 10 Ml) 10 ml IV PRN [facility] Witch Estefani/Glycerin (Tucks Pad) 1 each TP PRN PRN PRN Reason: Hemorrhoid/cleansing/soothing Review of Systems Constitutional: fever, no weight loss, no weight gain, no chills, no sweats, no night sweats, no anorexia, no fatigue, no weakness Ears, nose, mouth and throat: no ear pain, no ear discharge, no tinnitis, no decreased hearing, no nose pain, no nasal congestion Breasts: no change in shape, no swelling, no mass Cardiovascular: no chest pain, no orthopnea, no palpitations, no rapid/ irregular heart beat, no edema, no syncope, no lightheadedness Respiratory: no cough, no cough with sputum, no excessive sputum, no hemoptysis , no shortness of breath Gastrointestinal: no abdominal pain, no nausea, no vomiting, no diarrhea, no constipation, no melena, no hematochezia, no loss of appetite Genitourinary Female: no pelvic pain, no flank pain, no menorrhagia Rectal: no pain, no incontinence, no bleeding Musculoskeletal: no neck stiffness, no neck pain, no shooting arm pain, no arm numbness/tingling, no low back pain Integumentary: no rash, no pruritis, no redness, no sores Neurological: no head injury, no transient paralysis, no paralysis, no weakness , no parathesias Exam - Constitutional Vitals: Temp Pulse Resp BP Pulse Ox 99.9 F H 103 H 18 115/82 98 04/23/17 16:00 04/23/17 16:00 04/23/17 16:00 04/23/17 16:00 04/23/17 08:00 General appearance: Present: no acute distress - EENT Eyes: Present: PERRL ENT: hearing intact, clear oral mucosa - Neck Neck: Present: supple, normal ROM - Respiratory Respiratory effort: normal Respiratory: bilateral: CTA - Cardiovascular Heart Sounds: Present: S1 & S2. Absent: rub, click - Extremities Extremities: pulses symmetrical, No edema Peripheral Pulses: within normal limits - Abdominal General gastrointestinal: Present: soft, tender (appropriately tender. ), non- distended, normal bowel sounds, other (Incision: CDI). Absent: hepatomegaly, splenomegaly, mass Female genitourinary: Present: normal - Rectal Rectal Exam: normal exam-external/orifice - Integumentary Integumentary: Present: clear, warm, dry - Musculoskeletal Musculoskeletal: gait normal, strength equal bilaterally - Psychiatric Psychiatric: appropriate mood/affect, intact judgment & insight - Neurologic Neurologic: CNII-XII intact, moves all extremities Results - Labs CBC & Chem 7: 04/20/17 22:44 04/20/17 13:48 Assessment and Plan - Patient Problems (1) Fever Current Visit: Yes Status: Acute Plan to address problem: no evidence of Endometritis, or UTI, or mastitis, or sinusitis. Pt resting comfortably. Tylenol for fever, Urinalysis and culture. will continue to monitor and consider switching to more broad spectrum empiric antibiotic coverage, serial abdominal/pelvic exam, (2) Superficial venous thrombosis of left upper extremity Current Visit: Yes Status: Acute Plan to address problem: NSAID therapy, warm compress, supportive care.
[2017-04-23 21:09] LABS: Basophils % (Auto) 0.4 % (0.0-1.8); Eosinophils % (Auto) 0.1 % (0.0-4.3); Hemoglobin 10.5 gm/dl (10.1-14.3); Lymphocytes # (Auto) 0.8 K/mm3 (1.2-5.4); Lymphocytes % (Auto) 7.5 % (13.4-35.0); Mean Corpuscular HGB Conc 33 % (30-34); Mean Corpuscular Hemoglobin 26 pg (28-32); Mean Corpuscular Volume 80 fl (79-97); Monocytes # (Auto) 0.8 K/mm3 (0.0-0.8); Monocytes % (Auto) 7.7 % (0.0-7.3); Platelet Count 397 K/mm3 (140-440); Red Blood Count 4.02 M/mm3 (3.65-5.03)
[2017-04-24] MEDS: ceFAZolin 2 GM in NACL 0.9% 20 ML IV SCH ×3 (05:44→21:35)
--- NOTE | 2017-04-24 09:00 | Progress Note ---
Assessment and Plan - Patient Problems (1) Fever and other physiologic disturbances of temperature regulation Current Visit: Yes Status: Acute Plan to address problem: cont obs until fever abates (2) Superficial venous thrombosis of left upper extremity Current Visit: Yes Status: Acute Plan to address problem: cont obs until fever abates Subjective - Subjective Date of service: 04/24/17 Principal diagnosis: PreE & fever; S/P section 13 days ago Interval history: Pt was ready to go home, s/p tx for PP Pre-E, now on Labetolol 200 bid and s/p dx of SVT of LUE. Pt spiked fever of 102.6 last night and IM called in. This pt does not look sick to me at all Arm is less tender, barely tender at all Uterus is involuting and not tender Incision is healing and not infected. will keep in hosp and cont Ancef 1 more day. Scripts written for Keflex and Labetolol. Imp FUO, possibly a left over from SVT Patient reports: appetite normal, voiding normally, ambulating normally : doing well (at home) Objective - Vital Signs Latest vital signs: Vital Signs Temp Pulse Pulse Resp BP BP Pulse Ox 04/24/17 04:40 99.0 F 64 18 141/91 99 04/24/17 00:30 98.5 F 90 18 117/75 98 04/23/17 22:32 18 04/23/17 21:32 95 H 18 146/85 04/23/17 20:00 102.6 F H 95 H 18 146/85 99 04/23/17 19:45 92 H 18 04/23/17 16:00 99.9 F H 103 H 18 115/82 04/23/17 13:50 99.3 F 04/23/17 11:00 102.2 F H 04/23/17 10:29 103 F H 04/23/17 10:22 107 H 139/94 Intake and Output 04/23/17 04/24/17 04/24/17 23:59 07:59 15:59 Intake Total 720 240 Balance 720 240 Intake: Oral 720 240 Other: Total, Intake Amount 240 240 Voiding Method Toilet # Voids Void 1 1 - Exam Breasts: Present: normal Abdomen: Present: normal appearance, soft Uterus: Present: normal, firm Extremities: Present: normal Incision: Present: normal - Labs Labs: Abnormal lab results 04/23/17 Range/Units 20:48 MCH 26 L (28-32) pg RDW 21.0 H (13.2-15.2) % Lymph % (Auto) 7.5 L (13.4-35.0) % [place] % (Auto) 7.7 H (0.0-7.3) % Lymph # 0.8 L (1.2-5.4) K/mm3 Seg Neutrophils % 84.3 H (40.0-70.0) % Seg Neutrophils # 8.7 H (1.8-7.7) K/mm3
[2017-04-24] MEDS: NORMODYNE PO SCH ×2 (10:19→21:39)
--- NOTE | 2017-04-24 13:59 | Progress Note ---
Assessment and Plan Assessment and plan: Hospitalist [place] for Fevers -Fevers suspected due to superficial venous thrombophlelitis [place]: called Dr. Jarvis History Interval history: Patient was seen and examined. Follow-up on current diagnosis/fevers. Overnight uneventful. Patient denies any chest pain, shortness breath, nausea/ vomiting or severe headaches. Imaging, nursing note, chart, labs and old chart reviewed. Discussed with patient. Hospitalist Physical - Physical exam Narrative exam: GEN: WDWN, NAD, AWAKE, ALERT, ORIENTATED x 3 HEENT: NCAT, EOMI, PERRL, OP Clear NECK: supple, no adenopathy, no thyromegaly, no JVD CVS/HEART: RRR, NORMAL S1S2, NO JVD, pulses present bilaterally CHEST/LUNGS: CTA B, Symmetrical chest expansion, good air entry bilaterally GI/Abdomen: soft, NTND, good bowel sounds, no guarding or rebound /Bladder: no suprapubic tenderness, no CVA or paraspinal tenderness EXT/Skin: no c/c/e, no obvious rash, left arm/ante cubital fossa tenderness MSK: FROM x 4 Neuro: CN 2-12 grossly intact, no new focal deficits Psych: calm - Constitutional Vitals: Temp Pulse Resp BP Pulse Ox 99.7 F H 84 18 127/95 99 04/24/17 08:20 04/24/17 10:19 04/24/17 08:20 04/24/17 10:19 04/24/17 08:20 General appearance: Present: no acute distress Results - Labs CBC & Chem 7: 04/23/17 20:48 04/20/17 13:48 Labs: Laboratory Last Values WBC 10.4 K/mm3 (4.5-11.0) 04/23/17 20:48 RBC 4.02 M/mm3 (3.65-5.03) 04/23/17 20:48 Hgb 10.5 gm/dl (10.1-14.3) 04/23/17 20:48 Hct 32.0 % (30.3-42.9) 04/23/17 20:48 MCV 80 fl (79-97) 04/23/17 20:48 MCH 26 pg (28-32) L 04/23/17 20:48 MCHC 33 % (30-34) 04/23/17 20:48 RDW 21.0 % (13.2-15.2) H 04/23/17 20:48 Plt Count 397 K/mm3 (140-440) 04/23/17 20:48 Lymph % (Auto) 7.5 % (13.4-35.0) L 04/23/17 20:48 [place] % (Auto) 7.7 % (0.0-7.3) H 04/23/17 20:48 Eos % (Auto) 0.1 % (0.0-4.3) 04/23/17 20:48 Baso % (Auto) 0.4 % (0.0-1.8) 04/23/17 20:48 Lymph # 0.8 K/mm3 (1.2-5.4) L 04/23/17 20:48 [place] # 0.8 K/mm3 (0.0-0.8) 04/23/17 20:48 Eos # 0.0 K/mm3 (0.0-0.4) 04/23/17 20:48 Baso # 0.0 K/mm3 (0.0-0.1) 04/23/17 20:48 Seg Neutrophils % 84.3 % (40.0-70.0) H 04/23/17 20:48 Seg Neutrophils # 8.7 K/mm3 (1.8-7.7) H 04/23/17 20:48 Creatinine 0.4 mg/dL (0.7-1.2) L 04/20/17 13:48 Estimated GFR > 60 ml/min 04/20/17 13:48 Uric Acid 4.2 mg/dL (3.5-7.6) 04/20/17 13:48 Magnesium 6.20 mg/dL (1.7-2.3) H 04/21/17 10:25 AST 23 units/L (5-40) 04/20/17 13:48 ALT 21 units/L (7-56) 04/20/17 13:48 Lactate Dehydrogenase 449 units/L (91-180) H 04/20/17 13:48 Urine Color Straw (Yellow) 04/20/17 18:30 Urine Turbidity Clear (Clear) 04/20/17 18:30 Urine pH 7.0 (5.0-7.0) 04/20/17 18:30 Ur Specific [place] 1.008 (1.003-1.030) 04/20/17 18:30 Urine Protein <15 mg/dl mg/dL (Negative) 04/20/17 18:30 Urine Glucose (UA) Neg mg/dL (Negative) 04/20/17 18:30 Urine Ketones Neg mg/dL (Negative) 04/20/17 18:30 Urine Blood Lg (Negative) 04/20/17 18:30 Urine Nitrite Neg (Negative) 04/20/17 18:30 Urine Bilirubin Neg (Negative) 04/20/17 18:30 Urine Urobilinogen < 2.0 mg/dL (<2.0) 04/20/17 18:30 Ur Leukocyte Esterase Neg (Negative) 04/20/17 18:30 Urine WBC (Auto) 7.0 /HPF (0.0-6.0) H 04/20/17 18:30 Urine RBC (Auto) 11.0 /HPF (0.0-6.0) 04/20/17 18:30 U Epithel Cells (Auto) 2.0 /HPF (0-13.0) 04/20/17 18:30 Urine Mucus Few /HPF 04/20/17 18:30
--- NOTE | 2017-04-24 17:32 | Event Note ---
Date: 04/24/[address] Delcid, he rec consulting ID and re-imaging if spikes another fever.
[2017-04-25] MEDS: TYLENOL PO PRN (00:45)
[2017-04-25] MEDS: ceFAZolin 2 GM in NACL 0.9% 20 ML IV SCH ×2 (05:01→13:35)
--- NOTE | 2017-04-25 06:50 | Progress Note ---
Assessment and Plan Pt resting quietly No c/o voiced. Continue POC as noted. made aware - Patient Problems (1) Pre-eclampsia, Onset Date: ~04/20/17 Current Visit: Yes Status: Acute Plan to address problem: BP 130-114/90-70 No c/o LOPEZ, blurred vision, chest pain Continue Labetalol (2) Fever and other physiologic disturbances of temperature regulation Onset Date: ~04/24/17 Current Visit: Yes Status: Acute Plan to address problem: Pt has been afebrile X 24 hours (3) Superficial venous thrombosis of left upper extremity Onset Date: ~04/24/17 Current Visit: Yes Status: Acute Plan to address problem: Arm is warm w/o redness nor swelling; good pulses; full ROM Subjective - Subjective Date of service: 04/25/17 (resting voicing no c/o) Principal diagnosis: PreE & fever; S/P section 14 days ago Interval history: Pt went to [facility] [place] this AM with sudden onset LOPEZ. Her eval there PP PreE. Received call to transport to [facility]. Accepted per . Pt admitted to M/B unit. Admission BP 148/107. MGSO4 loading dose had been given Operative Report Operative Report: Date of procedure: 04/10/2017 Pre-operative diagnosis: Uterine at 39 weeks with previous section in labor Post-operative diagnosis: Same Procedure name(s): Repeat low transverse section Surgeon: Kike Mead MD E Commerce Retailer: LENNIE Anesthesia: Spinal EBL: 500 mL Complications: None Findings: Normal uterus tubes and ovaries bilaterally male infant weight 7 lbs. 7 oz. Apgars 8 at 1 minute and 9 at 5 minutes Specimen(s): None Procedure: The patient was brought to the operating room. A spinal was placed without any complications. She was then placed in left lateral tilt. Prepped and draped in the usual sterile manner. After testing for adequate anesthesia level, a Pfannenstiel incision was made through her previous scar. This incision was taken down to the fascia. The fascia was then nicked in the midline. This incision was extended out laterally with Seals scissors. The fascia was then sharply and bluntly from the underlying rectus muscles. The rectus muscles were bluntly and sharply . The peritoneum was then entered with the chemical reclamation equipment operator's fingers. This incision was spread vertically with care not to damage the bladder below. The bladder flap was then formed sharply and bluntly with Metzenbaum scissors. The David self- retaining tractor was then placed without any difficulty. A transverse incision was made in lower uterine segment. This incision was extended laterally with the operators fingers. The amniotic sac was then entered bluntly with the chemical reclamation equipment operator's fingers. The infant was delivered from the vertex position with assistance of a vacuum. Bulb suction on the mother's abdomen. Cord was double clamped and cut. The was then passed to the nursery personnel who were in attendance. The above scores were given by the nursery personnel. The placenta was then bluntly removed. The uterus was then externalized and wiped clean the remaining products. The uterine incision was closed in layers. The first incision was closed in a locking manner using 0 Vicryl. This was followed by imbricating stitch also with 0 Vicryl. This closure was hemostatic. The bladder flap was copiously irrigated and found to be hemostatic. The pelvis was copiously irrigated and found to be hemostatic. The uterus was then placed back to the patient's abdomen. The retractors were removed. The rectus muscles were inspected and found to be hemostatic. The fascia was then closed in a running manner using 0 Vicryl. This incision was hemostatic irrigation Bovie. The skin was reapproximated with 4-0 Vicryl subcuticularly. The patient tolerated procedure well. Her urine was clear. The infant was admitted to the well baby nursery. The patient was accompanied to recovery room in good condition. Instrument count correct 3 Patient reports: appetite normal, voiding normally, ambulating normally Objective - Vital Signs Latest vital signs: Vital Signs Temp Pulse Pulse Resp BP BP Pulse Ox 04/25/17 01:45 18 04/25/17 00:45 18 04/25/17 00:25 98.8 F 100 H 20 114/77 99 04/24/17 21:39 81 141/92 04/24/17 20:00 98.9 F 80 20 134/99 99 04/24/17 19:30 84 18 04/24/17 16:41 99.6 F 87 20 136/98 04/24/17 13:00 98.3 F 94 H 18 123/83 04/24/17 10:19 84 127/95 04/24/17 08:20 99.7 F H 67 18 139/95 99 Intake and Output 04/24/17 04/24/17 04/25/17 14:59 22:59 06:59 Intake Total 240 360 120 Balance 240 360 120 Intake: Oral 240 360 120 Other: Total, Intake Amount 240 360 120 Voiding Method Toilet Toilet # Voids Void 1 1 - Exam Breasts: Present: normal Cardiovascular: Present: Regular rate Lungs: Present: Normal air movement Abdomen: Present: normal appearance Uterus: Present: normal Extremities: Present: normal, other (LUE warm Good pulses Full ROM No c/o pain) Deep Tendon Reflex Grade: Normal +2
[2017-04-25] MEDS: NORMODYNE PO SCH (10:22)
--- NOTE | 2017-04-25 10:57 | Consultation ---
History of Present Illness - Reason for Consult Consult date: 04/25/17 Reason for consult: Mental Health Evaluation Requesting physician: JORGE BOUDREAUX - Chief Complaint Chief complaint: "Hello" - History of Present Psychiatric Illness 26 y.o. AA female presenting to [facility] for LOPEZ and hypertension. Psychiatry was consulted to see patient for possible depression. Today patient is calm and cooperative during the assessment. She stated that she didn't want to be in the hospital on admission. She stated that she wanted to be back home with her children. She stated that she understands the importance of her BP being stabilized prior to her discharge. She stated that her children came to visit with her yesterday and on previous occasions. She stated that she feels much better than she did on admission. She stated that she is looking forward to being a mother to her son. She stated that she has another son that's 4 years old. She was asked about her home life and she stated that she and her mom has a "so so" relationship, but would like it to be better. She stated that she would like to seek family therapy with her mother once discharged. She denies SI/HI's and AVH's. She denies any manic episodes, a poor appetite, recreational drug use, and alcohol consumption (etoh). Medications and Allergies Allergies Allergy/AdvReac Type Severity Reaction Status Date / Time No Known Allergies Allergy Verified 08/21/16 16:26 Home Medications Medication Instructions Recorded Confirmed Last Taken Type Vit No.130/Iron/Folic 1 each PO QDAY #90 tablet 08/21/16 04/20/1704/10 09:00 Rx [ Tablet] Nitrofurantoin [place]/M-Cryst 100 mg PO Q12HR #14 capsule 08/26/16 04/20/17 Unknown Rx [Macrobid CAP] Ferrous Sulfate [Feosol 325 MG tab] 325 mg PO BID #60 tablet 04/10/17 04/20/17 Unknown Rx Ibuprofen [Motrin 800 MG tab] 800 mg PO Q6H PRN #30 tablet 04/10/17 04/20/17 Unknown Rx oxyCODONE /ACETAMINOPHEN [Percocet 1 - 2 tab PO Q4H PRN #30 tablet 04/10/17 Unknown Rx 5/325 mg] Lidocain2.5%/Prilocai2.5% [Emla] 5 gm TP ONCE #1 tube 04/13/17 04/20/17 Unknown Rx Cephalexin [Keflex] 250 mg PO Q6HR 7 Days #28 capsule 04/24/17 Unknown Rx Labetalol [Normodyne TAB] 200 mg PO BID 30 Days #60 tablet 04/24/17 Unknown Rx Active Meds: Active Medications Acetaminophen (Tylenol) 650 mg PO Q4H PRN PRN Reason: Pain MILD(1-3)/Fever >100.5/LOPEZ Last Admin: 04/25/17 00:45 Dose: 650 mg Acetaminophen (Tylenol) 650 mg NM Q4H PRN PRN Reason: Pain, Mild (1-3) Bisacodyl (Dulcolax) 10 mg NM BID PRN PRN Reason: Constipation Diphenhydramine HCl (Benadryl) 25 mg PO Q6H PRN PRN Reason: Itching Hydralazine HCl (Apresoline) 5 mg IV Q30MIN PRN PRN Reason: Hypertension Last Admin: 04/23/17 01:17 Dose: 5 mg Lactated Ringer's (Lactated Ringers) 1,000 mls @ 100 mls/hr IV DIRECT [facility] Last Admin: 04/22/17 22:14 Dose: 100 mls/hr Cefazolin Sodium 2 gm/ Sodium (Chloride) 20 mls @ 20 mls/10 min IV Q8HR [facility] PRN Reason: Protocol Last Admin: 04/25/17 05:01 Dose: 20 mls/10 min Labetalol HCl (Normodyne) 200 mg PO BID [facility] Last Admin: 04/25/17 10:22 Dose: 200 mg Magnesium Hydroxide (Milk Of Magnesia) 30 ml PO HS PRN PRN Reason: Constipation Multi-Ingredient Ointment (Lansinoh) 1 applic TP PRN PRN PRN Reason: Sore Nipples Ondansetron HCl (Zofran) 4 mg IV Q8H PRN PRN Reason: Nausea And Vomiting Promethazine HCl (Phenergan) 25 mg PO Q6H PRN PRN Reason: Nausea And Vomiting Sodium Chloride (Sodium Chloride Flush Syringe 10 Ml) 10 ml IV PRN [facility] Witch Estefani/Glycerin (Tucks Pad) 1 each TP PRN PRN PRN Reason: Hemorrhoid/cleansing/soothing Past psychiatric history - Past Medical History Past Medical History: No medical history Past Surgical History: - past Psychiatric treatment and history psychiatric treatment history: Denies a psy hx and a fam psy hx. - Social History Social history: lives with family ([employer] graduate) Mental Status Exam - Vital signs Last Vital Signs Temp 98.5 F 04/25/17 08:52 Pulse 69 04/25/17 10:22 Resp 18 04/25/17 08:52 BP 129/97 04/25/17 10:22 Pulse Ox 100 04/25/17 08:52 - Exam Narrative exam: MSE: Appearance: calm, cooperative Behavior: good eye contact Speech: regular rate and tone Mood: "okay" Affect: congruent to mood Thought Process: linear Thought Content: denies SI/HI's and AVH's Motor Activity: ambulatory Cognition: A/Ox3 Insight: appropriate Judgment: appropriate Results Result Diagrams: 04/23/17 20:48 04/20/17 13:48 All other labs normal. Assessment and Plan Assessment and plan: Impression: No overt signs of depression with this patient. Today patient is calm and cooperative during the assessment. Recommendation/Plan: Patient was given outpatient psy services (family therapy) for [facility].
--- NOTE | 2017-04-25 13:21 | Progress Note ---
Assessment and Plan Assessment and plan: Hospitalist Cnc Applications Engineer for Fevers -Fevers suspected due to superficial venous thrombophlebitis antecubital area: called Dr. Jarvis Fever resolved, will sign off History Interval history: Patient was seen and examined. Follow-up on current diagnosis/fevers. Overnight uneventful. Patient denies any chest pain, shortness breath, nausea/ vomiting or severe headaches. Imaging, nursing note, chart, labs and old chart reviewed. Discussed with patient. Hospitalist Physical - Physical exam Narrative exam: GEN: WDWN, NAD, AWAKE, ALERT, ORIENTATED x 3 HEENT: NCAT, EOMI, PERRL, OP Clear NECK: supple, no adenopathy, no thyromegaly, no JVD CVS/HEART: RRR, NORMAL S1S2, NO JVD, pulses present bilaterally CHEST/LUNGS: CTA B, Symmetrical chest expansion, good air entry bilaterally GI/Abdomen: soft, NTND, good bowel sounds, no guarding or rebound /Bladder: no suprapubic tenderness, no CVA or paraspinal tenderness EXT/Skin: left arm/ante cubital fossa tenderness==>much better, less tender, softer, less swelling MSK: FROM x 4 Neuro: CN 2-12 grossly intact, no new focal deficits Psych: calm - Constitutional Vitals: Temp Pulse Resp BP Pulse Ox 98.5 F 77 18 137/99 99 04/25/17 12:08 04/25/17 12:08 04/25/17 12:08 04/25/17 12:08 04/25/17 12:08 General appearance: Present: no acute distress Results - Labs CBC & Chem 7: 04/23/17 20:48 04/20/17 13:48 Labs: Laboratory Last Values WBC 10.4 K/mm3 (4.5-11.0) 04/23/17 20:48 RBC 4.02 M/mm3 (3.65-5.03) 04/23/17 20:48 Hgb 10.5 gm/dl (10.1-14.3) 04/23/17 20:48 Hct 32.0 % (30.3-42.9) 04/23/17 20:48 MCV 80 fl (79-97) 04/23/17 20:48 MCH 26 pg (28-32) L 04/23/17 20:48 MCHC 33 % (30-34) 04/23/17 20:48 RDW 21.0 % (13.2-15.2) H 04/23/17 20:48 Plt Count 397 K/mm3 (140-440) 04/23/17 20:48 Lymph % (Auto) 7.5 % (13.4-35.0) L 04/23/17 20:48 [place] % (Auto) 7.7 % (0.0-7.3) H 04/23/17 20:48 Eos % (Auto) 0.1 % (0.0-4.3) 04/23/17 20:48 Baso % (Auto) 0.4 % (0.0-1.8) 04/23/17 20:48 Lymph # 0.8 K/mm3 (1.2-5.4) L 04/23/17 20:48 [place] # 0.8 K/mm3 (0.0-0.8) 04/23/17 20:48 Eos # 0.0 K/mm3 (0.0-0.4) 04/23/17 20:48 Baso # 0.0 K/mm3 (0.0-0.1) 04/23/17 20:48 Seg Neutrophils % 84.3 % (40.0-70.0) H 04/23/17 20:48 Seg Neutrophils # 8.7 K/mm3 (1.8-7.7) H 04/23/17 20:48 Creatinine 0.4 mg/dL (0.7-1.2) L 04/20/17 13:48 Estimated GFR > 60 ml/min 04/20/17 13:48 Uric Acid 4.2 mg/dL (3.5-7.6) 04/20/17 13:48 Magnesium 6.20 mg/dL (1.7-2.3) H 04/21/17 10:25 AST 23 units/L (5-40) 04/20/17 13:48 ALT 21 units/L (7-56) 04/20/17 13:48 Lactate Dehydrogenase 449 units/L (91-180) H 04/20/17 13:48 Urine Color Straw (Yellow) 04/20/17 18:30 Urine Turbidity Clear (Clear) 04/20/17 18:30 Urine pH 7.0 (5.0-7.0) 04/20/17 18:30 Ur Specific [place] 1.008 (1.003-1.030) 04/20/17 18:30 Urine Protein <15 mg/dl mg/dL (Negative) 04/20/17 18:30 Urine Glucose (UA) Neg mg/dL (Negative) 04/20/17 18:30 Urine Ketones Neg mg/dL (Negative) 04/20/17 18:30 Urine Blood Lg (Negative) 04/20/17 18:30 Urine Nitrite Neg (Negative) 04/20/17 18:30 Urine Bilirubin Neg (Negative) 04/20/17 18:30 Urine Urobilinogen < 2.0 mg/dL (<2.0) 04/20/17 18:30 Ur Leukocyte Esterase Neg (Negative) 04/20/17 18:30 Urine WBC (Auto) 7.0 /HPF (0.0-6.0) H 04/20/17 18:30 Urine RBC (Auto) 11.0 /HPF (0.0-6.0) 04/20/17 18:30 U Epithel Cells (Auto) 2.0 /HPF (0-13.0) 04/20/17 18:30 Urine Mucus Few /HPF 04/20/17 18:30
[2017-04-25 15:59] VITALS: BP 133/89
--- NOTE | 2017-04-25 17:08 | Discharge Summary ---
Providers - Providers Date of Admission: 04/20/17 12:52 Date of discharge: 04/25/17 (Will d/c today Keep appt for Saturday) Attending physician: JORGE BOUDREAUX 04/23/17 16:11 Consult to Physician [CONS] Routine Consulting Provider: ISRAEL GARVIN Reason For Exam: fever, pre-e, LUE SVT Place consult to:: y Notified:: yes Phone number called:: [phone] Was contact made?: Yes If yes, spoke with:: dr. Garvin Time called:: 16:12 04/21/17 12:30 Consult to Mental Health [CONS] Routine Reason For Exam: blues/depression Place consult to:: pato Notified:: Beatrice Phone number called:: [phone] Was contact made?: Yes If yes, spoke with:: Beatrice Trimble called:: 12:30 Comment:: said "this is post- depression" would be "normal";cnm req. consult Primary care physician: JORGE BOUDREAUX Hospitalization Reason for admission: other (PP PreE; FUO) complications: other (readmit PreE; FUO) Hospital course: readmit for pre-e and fever unknown origin Pt responded well to tx. Will be d/c on Labetalol and Ceftin po Pt will be seen Saturday when son comes to office for circumcision. D/C instructions given RTO Saturday for BP check RX sent to [facility] Condition at discharge: Good Disposition: DC- TO HOME OR SELFCARE - Discharge Diagnoses (1) Pre-eclampsia, Status: Acute Comment: Saturday in OB office BP check (2) Fever and other physiologic disturbances of temperature regulation Status: Acute (3) Superficial venous thrombosis of left upper extremity Status: Acute Plan - Discharge Medications Prescriptions: Cefuroxime Axetil [Ceftin] 500 mg PO Q12H 10 Days #20 ml Cephalexin [Keflex] 250 mg PO Q6HR 7 Days #28 capsule Labetalol [Normodyne TAB] 200 mg PO BID 30 Days #60 tablet Labetalol [Normodyne TAB] 200 mg PO BID #60 tablet - Provider Discharge Summary Activity: routine, no sex for 6 weeks, no heavy lifting 4 weeks, no strenuous exercise Diet: other (no salt) Instructions: routine Additional instructions: [] Smoking cessation referral if applicable(refer to patient education folder for contact #) [] Refer to [facility] Booklet Call your doctor immediately for: * Fever > 100.5 * Heavy vaginal bleeding ( >1 pad per hour) * Severe persistent headache * Shortness of breath * Reddened, hot, painful area to leg or breast * Drainage or odor from incision. * Keep incision clean and dry at all times and follow doctor's instructions regarding bathing/showering - Follow up plan Follow up: JORGE BOUDREAUX MD [Primary Care Provider] - 04/29/17 (Take medications as prescribed. Call with headache, blurred vision, chest pain. Drink 8 oz of fluid every hour you are awake. Call with any concerns.)
== END 2017-04-25 18:48 | disposition home or self-care (01) | DRG 776 ==
LOC: OB 04-20 12:52
PROVIDERS: ADMIT Obstetrics & Gynecology; ATTEND Obstetrics & Gynecology
DX: O14.95 Unspecified pre-eclampsia, complicating the puerperium (principal); O86.4 Pyrexia of unknown origin following delivery; O90.6 Postpartum mood disturbance; I82.612 Acute embolism and thrombosis of superficial veins of left upper extremity; O87.0 Superficial thrombophlebitis in the puerperium
CPT/HCPCS: 36415; 71045; 81001; 82565; 83615; 83735; 84450; 84460; 84550; 85014; 85018; 85025; 85027; 87040; 87086; J0360; J0690; J3475; J7120